=== PATIENT | male | born 1945 | race Caucasian/White ===

== ENCOUNTER 2018-08-13 12:08 | Observation (INO) ==
[2018-08-13] MEDS ORDERED: Aspirin 81 MG TAB.CHEW PO ONE (12:39)
--- NOTE | 2018-08-13 12:55 | Emergency Department Note ---
Disposition Clinical Impression: Atrial fibrillation with RVR Chest pain Qualifiers: Chest pain type: other chest pain Qualified Code(s): R07.89 - Other chest pain Disposition: Admitted As Inpatient Condition: Fair Time of Disposition: 14:50 General Adult HPI - General Chief complaint: ED Arrhythmia/Palpitations Stated complaint: A-Fib,CP Time Seen by Provider: 08/13/18 12:34 Source: patient Mode of arrival: ambulatory Limitations: no limitations Nursing Notes Reviewed: Yes Vital Signs Reviewed: Yes - History of Present Illness HPI Narrative: Patient is a 73-year-old male presenting with chest pain and dysrhythmia. Patient has medical history of atrial fibrillation, hypertension and hyperlipidemia. Patient states that 5 days ago he started to have generalized fatigue symptoms with palpitations and some shortness of breath. He states that he also had associated right chest discomfort described as a tightness and intermittent. He states there is no exertional component. He states episodes last from seconds to minutes. Just prior to arrival he was having chest pain which lasted for about 30 seconds, currently and no chest pain or distress. Patient does not have associated nausea, vomiting or abdominal pain. He has no radiating symptoms. He has no diaphoresis. Patient states that he has been taking Zaroxolyn flecainide for his atrial fibrillation is been well-controlled since 2009. He states that he feels palpitations and feels as though he has been atrophic relation since this time. He states he has been missing his flecainide morning dose for the past week or so states that he believes he is missed about 3-4 doses total. Patient does see Dr. Figueroa, cardiology. Pain Scale: 5 - Related Data Home Medications Medication Instructions Recorded Confirmed Aspirin Enteric Coated [Aspirin EC] 81 mg PO DAILY 08/13/18 08/13/18 Atenolol [Tenormin] 50 mg PO DAILY 08/13/18 08/13/18 Calcium Carb, Citrate/Vit D3 1 tab PO DAILY 08/13/18 08/13/18 [Calcium + D3 ER Tablet] Cetirizine HCl [All Day Allergy] 10 mg PO DAILY 08/13/18 08/13/18 Flecainide 100 mg PO Q12HR 08/13/18 08/13/18 Fluticasone Propionate Nasal 1 spr NS DAILY 08/13/18 08/13/18 [Flonase] Lisinopril [Zestril] 40 mg PO DAILY 08/13/18 08/13/18 Multivitamin [One Daily Essential] 1 tab PO DAILY 08/13/18 08/13/18 NIFEdipine XL (24 HR) [Procardia 30 mg PO DAILY 08/13/18 08/13/18 XL] [place]-3/Dha/Epa/Fish Oil [Fish Oil 1 cap PO DAILY 08/13/18 08/13/18 1,000 mg Softgel] Omeprazole [PriLOSEC] 20 mg PO DAILY 08/13/18 08/13/18 Rivaroxaban [Xarelto] 20 mg PO DAILY 08/13/18 08/13/18 Tamsulosin HCl [Flomax] 0.4 mg PO DAILY 08/13/18 08/13/18 metFORMIN [Glucophage] 500 mg PO DAILY 08/13/18 08/13/18 Allergies Allergy/AdvReac Type Severity Reaction Status Date / Time lovastatin AdvReac Hives Verified 08/13/18 13:14 All systems ED: reviewed and negative except as stated. Review of Systems: As Per HPI Constitutional: Denies: fever, chills ENT ED: Denies: congestion Cardiovascular: Reports: chest pain, palpitations. Denies: dyspnea on exertion , syncope Respiratory: Reports: dyspnea. Denies: cough, wheezes Gastrointestinal: Denies: abdominal pain, nausea, vomiting, diarrhea, hematemesis Genitourinary: Denies: urgency, dysuria, frequency Musculoskeletal: Denies: back pain Integumentary: Denies: rash, lesions Neurological: Denies: headache, weakness, numbness, paresthesias Endocrine: Reports: fatigue Past Medical History - Past Medical History Attestation: Yes The following information was validated with the patient. Source: patient Medical history: Reports: other Physical Exam - General Limitations: no limitations General appearance: alert, in no apparent distress - Head Head exam: atraumatic, normocephalic - Eye Eye exam: Present: normal appearance - ENT ENT exam: normal exam, mucous membranes moist - Neck Neck exam: Present: normal inspection - Chest Chest inspection: Present: normal inspection, symmetric chest wall rise. Absent : tenderness - Respiratory Respiratory exam: Present: normal lung sounds bilaterally. Absent: respiratory distress, wheezes - Cardiovascular Cardiovascular exam: Present: regular rate, irregular rhythm - Abdominal Exam Abdominal exam: Present: soft, Non-Tender. Absent: tenderness, distention, guarding, rebound, rigidity - Extremities Exam Extremities exam: Present: normal inspection, normal capillary refill. Absent: calf tenderness - Expanded Lower Extremity Exam Neurovascular/Tendon exam: Present: normal capillary refill. Absent: pulse deficit, motor deficit, sensory deficit - Neurological Exam Neurological exam: Present: alert, oriented X3 - Psychiatric Psychiatric exam: Present: normal affect, normal mood - Skin Skin exam: Present: warm, dry, intact Course Course Narrative: Will ACS rule out at this point in time. - Consultations Consultation #1: Spoke with cardiology at 1435 Dr. Griffiths, who stated that at this point in time he would start Lopressor 5 mg IV, if patient tolerates and heart rate is tolerable as well as blood pressure, start 5 mg by mouth. Vital Signs Temperature 97.7 F 08/13/18 12:18 Pulse Rate 123 08/13/18 12:18 Respiratory Rate 18 08/13/18 12:18 Blood Pressure 137/92 08/13/18 12:18 O2 Sat by Pulse Oximetry 95 08/13/18 12:18 Temperature 97.7 F 08/13/18 12:44 Pulse Rate 83 08/13/18 15:58 Respiratory Rate 14 08/13/18 15:58 Blood Pressure 127/74 08/13/18 15:58 O2 Sat by Pulse Oximetry 95 08/13/18 15:58 Oxygen Delivery Oxygen Delivery Room Air Medical Decision Making - [facility] Narrative Medical decision making narrative: Patient is a [id number]-year-old male presenting with atrial fibrillation and chest discomfort. Patient has has had a history significant for atrial fibrillation currently taking Xarelto and flecainide. Patient has no history of myocardial infarction or stent placement. Patient has been missing his left my multiple times over the past week. Patient is seen by Dr. Figueroa and cardiology. EKG shows patient to be in atrial fibrillation with ventricular rate in the low 100s. At bedside, patient's heart rate is 103. Patient currently denying chest pain. His workup reveals a normal CBC, BMP, troponin is within normal limits. Chest x-ray shows possible right basilar opacity, patient continues to be symptomatically denies any symptoms. At this point in time will contact cardiology for further recommendations. Cardiology, stated that we should start Lopressor 5 mg IV push while watching the patient. Patient tolerated to start 5 mg oral. At this point in time, we will discuss patient with hospitalist this patient should be admitted for ACS rule out. Spoke with hospitalist at 1450, and accepts patient at this point in time - Medical Records Medical records reviewed: Yes I reviewed the patient's medical records. - Lab Data Lab results reviewed: Yes I reviewed the patient's lab results. Result diagrams: 08/13/18 12:50 08/13/18 12:50 Lab Results 08/13/18 08/13/18 08/13/18 Range/Units 12:40 12:50 12:50 WBC 7.3 (4.3-11.1) K/mcL RBC 4.92 (4.19-5.50) M/mcL Hgb 14.9 (12.9-16.9) g/dL Hct 44.3 (37.5-50.1) % MCV 90.0 (83.0-100.0) fL MCH 30.3 (28.0-33.3) pg MCHC 33.6 (31.6-35.5) g/dL RDW 13.5 (11.5-14.5) % Plt Count 284 (140-400) K/mcL MPV 10.4 (9.4-12.4) fL Immature Gran % 0.4 (0-4) % Seg Neutrophils % 55.8 % Lymphocytes % 31.7 % Monocytes % 9.2 % Eosinophils % 1.8 % Basophils % 1.1 % Neutrophils # 4.1 (1.6-8.9) K/mcL Lymphocytes # 2.3 (0.6-4.6) K/mcL Monocytes # 0.7 (0.0-1.3) K/mcL Eosinophils # 0.1 (0.0-0.6) K/mcL Basophils # 0.1 (0.0-0.2) K/mcL PT 16.8 H (9.4-12.1) Seconds INR 1.5 APTT 35.1 (26.0-36.0) Seconds Sodium 138 (136-145) mEq/L Potassium 4.4 (3.5-5.1) mEq/L Chloride 107 (98-107) mEq/L Carbon Dioxide 25 (23-29) mEq/L BUN 20 (8-23) mg/dL Creatinine 1.20 (0.70-1.30) mg/dL Est GFR ( Amer) > 60 (> 60) Est GFR (Non-Af Amer) 59 L (> 60) BUN/Creatinine Ratio 17 (6-26) Glucose 122 H (70-105) mg/dL Calculated Osmolality 290 (280-300) Calcium 9.7 (8.6-10.3) mg/dL Troponin I < 0.03 (< 0.04) ng/mL - Radiology Data Radiology results reviewed: Yes I reviewed the patient's radiology results. Chest X-Ray 08/13/18 12:40 IMPRESSION: Mild right basilar opacity may represent a developing infiltrate. Follow-up to resolution is recommended. D/ / Daphne Spencer MD / Daphne Spencer MD Interpreting Provider: Daphne Spencer MD - EKG Data EKG #1 EKG attestation: Yes I reviewed and interpreted this EKG. EKG results narrative: EKG one performed at 12 1950. Of 108, patient appears to be in atrial fibrillation with RVR left axis deviation, possible ST elevation in V2 and V3 with depression in V5 V6, repeat EKG was performed Repeat EKG performed at 1249 shows ventricular rate of 112, patient appears to be in atrial fibrillation, irregular regular rhythm, left axis deviation no ST elevation is noted, no T-wave changes, slight ST depression in V 5. When compared to previous EKG there are: previous EKG unavailable Critical Care Time Critical Care Time: Yes Total Critical Care Time: 35 Attestation: Critical care performed: Time is exclusive of separately billable procedures. Time includes: direct patient care, patient reassessment, coordination of patient care, interpretation of data (laboratory data, radiology data, and respiratory data), review of patient's medical records, medical consultation and documentation of patient care. Procedures included in critical care time: Procedures excluded from critical care time: S.B.A.R. - S.B.A.R. Situation: Demographics, MOA Background: Presenting Complaint, Relevant PMH, Meds, & Allergies Assessment: Vital Signs, Course and respsone to treatment, Exam Concerns, Patient/Family Expectation, Pertinant Lab Results, Outstanding Labs Recommendation: Barrier(s) to disposition, Recommendation based on pending studies, treatments, or consults Asim Report Given to: Dr. Kamala Dialey Repor Time: 14:50 (accepted)
--- NOTE | 2018-08-13 13:02 | Emergency Department Note ---
Disposition Clinical Impression: Atrial fibrillation with RVR, Chest pain Disposition: Admitted As Inpatient Condition: Fair General Adult HPI - General Chief complaint: ED Arrhythmia/Palpitations Stated complaint: A-Fib,CP Time Seen by Provider: 08/13/18 12:34 Source: patient Mode of arrival: ambulatory Limitations: no limitations - History of Present Illness Pain Scale: 5 - Related Data Home Medications Medication Instructions Recorded Confirmed Aspirin Enteric Coated [Aspirin EC] 81 mg PO DAILY 08/13/18 08/13/18 Atenolol [Tenormin] 50 mg PO DAILY 08/13/18 08/13/18 Calcium Carb, Citrate/Vit D3 1 tab PO DAILY 08/13/18 08/13/18 [Calcium + D3 ER Tablet] Cetirizine HCl [All Day Allergy] 10 mg PO DAILY 08/13/18 08/13/18 Flecainide 100 mg PO Q12HR 08/13/18 08/13/18 Fluticasone Propionate Nasal 1 spr NS DAILY 08/13/18 08/13/18 [Flonase] Lisinopril [Zestril] 40 mg PO DAILY 08/13/18 08/13/18 Multivitamin [One Daily Essential] 1 tab PO DAILY 08/13/18 08/13/18 NIFEdipine XL (24 HR) [Procardia 30 mg PO DAILY 08/13/18 08/13/18 XL] [place]-3/Dha/Epa/Fish Oil [Fish Oil 1 cap PO DAILY 08/13/18 08/13/18 1,000 mg Softgel] Omeprazole [PriLOSEC] 20 mg PO DAILY 08/13/18 08/13/18 Rivaroxaban [Xarelto] 20 mg PO DAILY 08/13/18 08/13/18 Tamsulosin HCl [Flomax] 0.4 mg PO DAILY 08/13/18 08/13/18 metFORMIN [Glucophage] 500 mg PO DAILY 08/13/18 08/13/18 Allergies Allergy/AdvReac Type Severity Reaction Status Date / Time lovastatin AdvReac Hives Verified 08/13/18 13:14 Constitutional: Denies: fever, chills ENT ED: Denies: congestion Cardiovascular: Reports: chest pain, palpitations. Denies: dyspnea on exertion , syncope Respiratory: Reports: dyspnea. Denies: cough, wheezes Gastrointestinal: Denies: abdominal pain, nausea, vomiting, diarrhea, hematemesis Genitourinary: Denies: urgency, dysuria, frequency Musculoskeletal: Denies: back pain Integumentary: Denies: rash, lesions Neurological: Denies: headache, weakness, numbness, paresthesias Endocrine: Reports: fatigue Past Medical History - Past Medical History Medical history: Reports: asthma, atrial fibrillation, GERD, hypertension Psychiatric history: Reports: no psych history - Social History Smoking Status: Never smoker Smokeless Tobacco Status: No Alcohol use: Reports: rarely Drug use: Reports: none Physical Exam - General Limitations: no limitations General appearance: alert, in no apparent distress Course Vital Signs Temperature 97.7 F 08/13/18 12:18 Pulse Rate 123 08/13/18 12:18 Respiratory Rate 18 08/13/18 12:18 Blood Pressure 137/92 08/13/18 12:18 O2 Sat by Pulse Oximetry 95 08/13/18 12:18 Temperature 97.7 F 08/13/18 12:44 Pulse Rate 83 08/13/18 15:58 Respiratory Rate 14 08/13/18 15:58 Blood Pressure 127/74 08/13/18 15:58 O2 Sat by Pulse Oximetry 95 08/13/18 15:58 Oxygen Delivery Oxygen Delivery Room Air Medical Decision Making - Lab Data Result diagrams: 08/13/18 12:50 08/13/18 12:50 Lab Results 08/13/18 08/13/18 08/13/18 Range/Units 12:40 12:50 12:50 WBC 7.3 (4.3-11.1) K/mcL RBC 4.92 (4.19-5.50) M/mcL Hgb 14.9 (12.9-16.9) g/dL Hct 44.3 (37.5-50.1) % MCV 90.0 (83.0-100.0) fL MCH 30.3 (28.0-33.3) pg MCHC 33.6 (31.6-35.5) g/dL RDW 13.5 (11.5-14.5) % Plt Count 284 (140-400) K/mcL MPV 10.4 (9.4-12.4) fL Immature Gran % 0.4 (0-4) % Seg Neutrophils % 55.8 % Lymphocytes % 31.7 % Monocytes % 9.2 % Eosinophils % 1.8 % Basophils % 1.1 % Neutrophils # 4.1 (1.6-8.9) K/mcL Lymphocytes # 2.3 (0.6-4.6) K/mcL Monocytes # 0.7 (0.0-1.3) K/mcL Eosinophils # 0.1 (0.0-0.6) K/mcL Basophils # 0.1 (0.0-0.2) K/mcL PT 16.8 H (9.4-12.1) Seconds INR 1.5 APTT 35.1 (26.0-36.0) Seconds Sodium 138 (136-145) mEq/L Potassium 4.4 (3.5-5.1) mEq/L Chloride 107 (98-107) mEq/L Carbon Dioxide 25 (23-29) mEq/L BUN 20 (8-23) mg/dL Creatinine 1.20 (0.70-1.30) mg/dL Est GFR ( Amer) > 60 (> 60) Est GFR (Non-Af Amer) 59 L (> 60) BUN/Creatinine Ratio 17 (6-26) Glucose 122 H (70-105) mg/dL Calculated Osmolality 290 (280-300) Calcium 9.7 (8.6-10.3) mg/dL Troponin I < 0.03 (< 0.04) ng/mL Attestation Statement - Attestation Attestation: I examined this patient and my medical decision-making was reviewed with the Resident Physician. I agree with the documented findings, disposition and treatment plan as described except to the extent set forth below. Patient to the ED with a chief complaint of A. fib. Patient states he thinks it started about 5 days ago. He states he knew he was sent in because he checked his pulse and it was high. He has a history of the same. His been off like and 9 for 5 or 6 years and has not had any episodes in that time. He is also anticoagulated on Xarelto. Patient is in no distress on examination. Heart irregularly irregular running in the upper 90s to low 100s. Plan. Cardiac workup. We will discuss with cardiology. Chest X-Ray 08/13/18 12:40 IMPRESSION: Mild right basilar opacity may represent a developing infiltrate. Follow-up to resolution is recommended. D/ / Daphne Spencer MD / Daphne Spencer MD Interpreting Provider: Daphne Spencer MD
[2018-08-13 13:11] LABS: Basophils # 0.1 K/mcL (0.0-0.2); Basophils % 1.1 %; Eosinophils # 0.1 K/mcL (0.0-0.6); Eosinophils % 1.8 %; Hematocrit 44.3 % (37.5-50.1); Hemoglobin 14.9 g/dL (12.9-16.9); Immature Granulocytes % 0.4 % (0-4); Lymphocytes # 2.3 K/mcL (0.6-4.6); Lymphocytes % 31.7 %; Mean Corpuscular HGB Conc 33.6 g/dL (31.6-35.5); Mean Corpuscular Hemoglobin 30.3 pg (28.0-33.3); Mean Platelet Volume 10.4 fL (9.4-12.4); Monocytes # 0.7 K/mcL (0.0-1.3); Monocytes % 9.2 %; Neutrophils # 4.1 K/mcL (1.6-8.9); Platelet Count 284 K/mcL (140-400); Red Blood Count 4.92 M/mcL (4.19-5.50); Red Cell Distribution Width 13.5 % (11.5-14.5); Segmented Neutrophils % 55.8 %
[2018-08-13 13:17] LABS: INR 1.5; Prothrombin Time 16.8 Seconds (9.4-12.1)
[2018-08-13 13:20] LABS: Activated Partial Thrombo Time 35.1 Seconds (26.0-36.0)
[2018-08-13 13:27] LABS: BUN/Creatinine Ratio 17 (6-26); Blood Urea Nitrogen 20 mg/dL (8-23); Calcium 9.7 mg/dL (8.6-10.3); Carbon Dioxide 25 mEq/L (23-29); Chloride 107 mEq/L (98-107); Glucose 122 mg/dL (70-105); Osmolality,Calculated 290 (280-300); Potassium 4.4 mEq/L (3.5-5.1); Sodium 138 mEq/L (136-145); Troponin I < 0.03 ng/mL (< 0.04); eGFR For Non-African Americans 59 (> 60)
[2018-08-13] MEDS ORDERED: *HR* Metoprolol 5 MG/5 ML VIAL IVP ONE (14:36)
--- NOTE | 2018-08-13 15:39 | Internal Med Progress Note ---
<Sylvia Leyva - Last Filed: 08/14/18 17:47> Hospitalist Progress Note - Encounter Date of Encounter: 08/14/18 Time of Encounter: 08:32 - Subjective Interval History: Patient is a 73-year-old male with a pmh of DM2, Afib on Xarelto, and HTN who presenting with chest pressure and dysrhythmia. Today patient is feeling well. Denies chest pressure, SOB, CP. Patient had cardioversion and afterwards felt like his head was a little fuzzy. - Exam Vitals: Temp Pulse Resp BP Pulse Ox 97.7 F 123 18 137/92 95 08/13/18 12:44 08/13/18 12:44 08/13/18 12:44 08/13/18 12:44 08/13/18 12:44 Exam: Constitutional: Alert, in no acute distress Head: Normocephalic, atraumatic Heart: regular rate, irregular rhythm, no murmurs Lungs: Clear to auscultation, no wheezes, rales, or rhonchi Abdomen: Soft, nondistended, nontender, bowel sounds present and normal, no guarding or rigidity. Extremities: No edema, No clubbing, radial pulse +2/4, capillary refill <2sec. Skin: Skin warm and dry, no lesions, no rashes, no jaundice Neurologic: Cranial nerves II through XII grossly intact, strength 5/5 in all extremities Psych: Cooperative with exam, good eye contact, cognitive function intact, speech clear, thought process logical, and goal directed - Assessment and Plan (1) Atrial fibrillation with RVR Current Visit: Yes Status: Acute Assessment and Plan: Patient has a pmh of Afib on Xarelto and Flecainide 100mg BID. Possible causes of include missing doses of Flecainide, not using CPAP at night, vs. pneumonia. Troponin <0.03 x 3. Currently not having chest pain. Overnight patient has been rate controlled without PRN Lopressor given. Cardiology performed cardioversion. Patient's s/p cardioversion was 76/45, repeat was 92/57. Patient's HR remained within the low 40s. Awaiting recommendations from Cardio about holding atenolol. Plan: - continue telemetry - consulted cardiology, awaiting home med recs - diet: regular diet - dispo: rate controlled (2) HTN (hypertension) Current Visit: Yes Status: Acute Assessment and Plan: Currently stable. Continue home medications: Atenolol, Flecainide, Nifedipine, ASA (3) Prediabetes Current Visit: Yes Status: Acute Assessment and Plan: A1c= 5.7 per patient, currently on Metformin for pre-diabetes. Will hold Metformin. Pre-diabetes should not need glucose control while inpatient. DVT Prophylaxis: continue home Xarelto - Time Spent with Patient Total time spent is greater than 50% in coordination of care (as documented) at patient's floor/unit and/or counseling patient: Plan of Care Discussed with: patient Internal Medicine: Result - Labs CBC & Chem 7: 08/14/18 00:46 08/14/18 00:46 - ABG Interpretation ABG results: PT/INR, D-dimer PT 16.8 Seconds (9.4-12.1) H 08/13/18 12:40 Consult Discharge Plan - Plan Referrals: Trenton Schneider MD [Primary Care Provider] - <Yeimy Reyes - Last Filed: 08/14/18 18:30> Hospitalist Progress Note - Encounter Date of Encounter: 08/14/18 - Exam Vitals: Temp Pulse Resp BP Pulse Ox 96.7 F L 58 15 112/68 93 08/14/18 13:30 08/14/18 18:16 08/14/18 15:12 08/14/18 18:16 08/14/18 15:12 - Assessment and Plan (1) Atrial fibrillation with RVR Current Visit: Yes Status: Acute (2) HTN (hypertension) Current Visit: Yes Status: Acute (3) Prediabetes Current Visit: Yes Status: Acute - Time Spent with Patient Total time spent is greater than 50% in coordination of care (as documented) at patient's floor/unit and/or counseling patient: Internal Medicine: Result - Labs CBC & Chem 7: 08/14/18 00:46 08/14/18 00:46 Labs: Short CBC 08/14/18 Range/Units 00:46 WBC 8.2 (4.3-11.1) K/mcL Hgb 15.0 (12.9-16.9) g/dL Hct 44.3 (37.5-50.1) % Plt Count 272 (140-400) K/mcL Neutrophils # 3.7 (1.6-8.9) K/mcL BMP 08/14/18 00:46 Sodium 139 Potassium 3.8 Chloride 107 Carbon Dioxide 23 BUN 18 Creatinine 1.01 Glucose 136 H Calcium 9.1 Cardiac Enzymes 08/13/18 08/14/18 08/14/18 Range/Units 17:59 00:46 05:38 Troponin I < 0.03 < 0.03 < 0.03 (< 0.04) ng/mL - ABG Interpretation ABG results: PT/INR, D-dimer PT 16.8 Seconds (9.4-12.1) H 08/13/18 12:40 - Impressions Impressions Transesophageal w/Cardioversion 08/14/18 10:11 Impressions: Successful DCCV of atrial fibrillation to normal sinus rhythm. No evidence for intracardiac thrombus. LA appears severely enlarged. Patient desaturated to into 80% range during the procedure. Medication Given: Time Medication Dose Units Route 11:55 Versed 1 mg IV 11:55 Fentanyl 25 mcg IV 12:00 Versed 2 mg IV 12:00 Fentanyl 25 mcg IV 12:05 Versed 2 mg IV 12:18 Versed 1 mg IV 12:18 Fentanyl 25 mcg IV Contrast Type Amount Agitated saline 10 Findings: ECG Findings * Atrial fib without ectopy Left Ventricle * Normal size and function. Right Ventricle * The right ventricle was normal in size and systolic function. Left Atrium * Severely dilated. * No thrombus present. * The LA appendage flow velocity is borderline normal. Right Atrium * RA is Mildly dilated. * No thrombus present. Interatrial Septum * No evidence of inter-atrial shunting noted with saline contrast. Aortic Valve * No aortic regurgitation. * Normal structure and function. Mitral Valve * Normal structure. * Mild mitral regurgitation. Tricuspid Valve * Normal structure. * mild tricuspid regurgitation. Pulmonic Valve * Not well visualized. * trivial pulmonic regurgitation. Aorta * The aortic root is not dilated. * Grade II plaquing of the descending thoracic aorta. Pulmonary Artery * Normal pulmonary artery. Pulmonary Veins * Systolic blunting flow patterns. - Attending Attestation I examined this patient and my medical decision-making was reviewed with the Resident Physician DR. Leyva. I agree with the documented findings, disposition and treatment plan as described except to the extent set forth below. Mr. Royal is 73 y/o M with known Afib, HTN, HLD and Sleep apnea pt admitted here for A fib with RVR. He went for Cardioversion today. He is in NSR now. However he is little nita cardic too. So held his Atenolol now. Cont Flecanide only. Will talk to card in AM. Explained this to pt and his family at bed side. <Sylvia Leyva - Last Filed: 08/14/18 17:47> (2) HTN (hypertension) Qualifiers: Hypertension type: essential hypertension Qualified Code(s): I10 - Essential (primary) hypertension <Yeimy Reyes - Last Filed: 08/14/18 18:30> (2) HTN (hypertension) Qualifiers: Hypertension type: essential hypertension Qualified Code(s): I10 - Essential (primary) hypertension
--- NOTE | 2018-08-13 16:16 | Internal Med History&Physical ---
<Sylvia Leyva - Last Filed: 08/13/18 17:01> Date of Encounter: 08/13/18 Time of Encounter: 15:58 Internal Medicine - H&P: HPI Chief complaint: chest pain Admitted From: Home History of present illness: Mr. Royal is 73-year-old male with a pmh of pre-diabetes, Afib on Xarelto, LUZMARIA on CPAP, and HTN who presenting with chest tightness and dysrhythmia. He felt like he was in afib on Monday and then it continued throughout the weekend. He decided to come in due to not converting over the weekend. He has had intermittent chest tightness that resolved with ibuprofen. He has had some rhinorrhea but believes this to be due to allergies. Denies fevers, chills, coughing, CP, , N/V. He missed his Flecainide in the AM a couple of days last week. but for the last 5 days has taken every dose of his Flecainide. He has used his CPAP every day for the last 5 days but does often miss.The last time he was in hospitalized for afib was 5-6 years ago for change in flecainide. He has not been in afib. Dr. Mike Figueroa is his benefits assistant. Upon arrival to the ED patient was found to be in Afib RVR with a HR 123 and a normal blood pressure. showed Cardiology was called and instructed to give Lopressor 5mg IVP once then start Lopressor 5mg PO. ASA was also given. Labs were wnl including initial Troponin. Patient was admitted for Afib RVR and ACS r/o. Past Med Surg Social Fam HX - Past Medical History Medical history: atrial fibrillation, GERD, hypertension Additional medical history: sleep apnea Psychiatric history: no psych history - Past Surgical History Surgical History: cholecystectomy, orthopedic, other Additional surgical history: rotator cuff surgery - Social History Smoking Status: Former smoker (quit 1979) Smokeless Tobacco Status: No Alcohol use: occasionally Drug use: none Occupational status: retired Current living situation: Home Activity Level: Independent ambulation Recent Out of Country Travel Within the Last 8 Weeks: No Exposure or Possible Exposure to Illness During Travel: No - Family History Mother Hx Family Cardiac Disorders: Yes (pacemaker) Father Hx Family Cancer: Yes (lung cancer) Internal Medicine - H&P: Meds Aspirin Enteric Coated [Aspirin EC] 81 mg PO DAILY 08/13/18 [History] Atenolol [Tenormin] 50 mg PO DAILY 08/13/18 [History] Calcium Carb, Citrate/Vit D3 [Calcium + D3 ER Tablet] 1 tab PO DAILY 08/13/18 [ History] Cetirizine HCl [All Day Allergy] 10 mg PO DAILY 08/13/18 [History] Flecainide 100 mg PO Q12HR 08/13/18 [History] Fluticasone Propionate Nasal [Flonase] 1 spr NS DAILY 08/13/18 [History] Lisinopril [Zestril] 40 mg PO DAILY 08/13/18 [History] Multivitamin [One Daily Essential] 1 tab PO DAILY 08/13/18 [History] NIFEdipine XL (24 HR) [Procardia XL] 30 mg PO DAILY 08/13/18 [History] [place]-3/Dha/Epa/Fish Oil [Fish Oil 1,000 mg Softgel] 1 cap PO DAILY 08/13/18 [ History] Omeprazole [PriLOSEC] 20 mg PO DAILY 08/13/18 [History] Rivaroxaban [Xarelto] 20 mg PO DAILY 08/13/18 [History] Tamsulosin HCl [Flomax] 0.4 mg PO DAILY 08/13/18 [History] metFORMIN [Glucophage] 500 mg PO DAILY 08/13/18 [History] 3 Allergy/AdvReac Type Severity Reaction Status Date / Time lovastatin AdvReac Hives Verified 08/13/18 13:14 All Systems PM: A 10-system review of systems was performed and is negative for pertinent findings except as documented above in the HPI. - Constitutional Constitutional: no fever(s) - EENT Eyes: no pain Nose, mouth and throat: nasal discharge, no hoarseness - Cardiovascular Cardiovascular ROS IM: palpitations, no dyspnea - Respiratory Respiratory: no dyspnea - Gastrointestinal Gastrointestinal: no abdominal pain, no nausea, no vomiting - Musculoskeletal Musculoskeletal ROS IM: no back pain - Integumentary Integumentary IM: no rash - Neurological Neurological ROS: no abnormal hearing - Constitutional Vitals: Temp Pulse Resp BP Pulse Ox 97.7 F 123 18 137/92 95 08/13/18 12:44 08/13/18 12:44 08/13/18 12:44 08/13/18 12:44 08/13/18 12:44 Exam: Constitutional: Alert, in no acute distress Head: Normocephalic, atraumatic Heart: regular rate, irregular rhythm, no murmurs Lungs: Clear to auscultation, no wheezes, rales, or rhonchi Abdomen: Soft, nondistended, nontender, bowel sounds present and normal, no guarding or rigidity. Extremities: No edema, No clubbing, radial pulse +2/4, capillary refill <2sec. Skin: Skin warm and dry, no lesions, no rashes, no jaundice Neurologic: Cranial nerves II through XII grossly intact, strength 5/5 in all extremities Psych: Cooperative with exam, good eye contact, cognitive function intact, speech clear, thought process logical, and goal directed Internal Med - H&P Results - Labs CBC & Chem 7: 08/13/18 12:50 08/13/18 12:50 - Assessment and plan (1) Atrial fibrillation with RVR Current Visit: Yes Status: Acute Assessment and plan: Patient has a pmh of Afib on Xarelto and Flecainide 100mg BID. Possible causes of include missing doses of Flecainide, not using CPAP at night, vs. pneumonia. Initial Troponin= <0.03. Currently not having chest pain. Plan: - Lopressor 5mg IVP Q6H prn if tachycardic > 110, don't give if systolic BP < 100 - trending troponins - continue telemetry - consult cardiology in the AM for rate control - dispo: rate controlled (2) HTN (hypertension) Current Visit: Yes Status: Acute Assessment and plan: Currently stable. Continue home medications: Atenolol, Flecainide, Nifedipine, ASA Qualifiers: Hypertension type: essential hypertension Qualified Code(s): I10 - Essential (primary) hypertension (3) Prediabetes Current Visit: Yes Status: Acute Assessment and plan: Patient's last A1c= 5.7 per patient, currently on Metformin for pre-diabetes. Will hold Metformin. Pre-diabetes should not need glucose control while inpatient. will check A1c. (4) Pneumonia Current Visit: Yes Status: Acute Assessment and plan: Has had some rhinorrhea, increase fatigue but denies fever, coughing. CXR shows right middle lobe opacity. WBC wnl. Afebrile. Due to possible cause for onset of Afib will start patient on Augmentin for 7 days. Plan: - Augmentin 875mg BID - continue home allergy medications Qualifiers: Pneumonia type: due to unspecified organism Laterality: right Lung location: middle lobe of lung Qualified Code(s): J18.1 - Lobar pneumonia, unspecified organism - Time Spent With Patient Total time spent is greater than 50% in coordination of care (as documented) at patient's floor/unit and/or counseling patient: <Nirav Castro - Last Filed: 08/13/18 17:59> Date of Encounter: 08/13/18 Internal Medicine - H&P: HPI History of present illness: Mr. Royal is a 73 year old male All Systems PM: A 10-system review of systems was performed and is negative for pertinent findings except as documented above in the HPI. - Constitutional Vitals: Temp Pulse Resp BP Pulse Ox 97.7 F 83 15 124/78 94 08/13/18 17:23 08/13/18 17:23 08/13/18 17:23 08/13/18 17:23 08/13/18 17:23 Internal Med - H&P Results - Labs CBC & Chem 7: 08/13/18 12:50 08/13/18 12:50 - Assessment and plan (1) Atrial fibrillation with RVR Current Visit: Yes Status: Acute (2) HTN (hypertension) Current Visit: Yes Status: Acute Qualifiers: Hypertension type: essential hypertension Qualified Code(s): I10 - Essential (primary) hypertension (3) Prediabetes Current Visit: Yes Status: Acute (4) Pneumonia Current Visit: Yes Status: Acute Qualifiers: Pneumonia type: due to unspecified organism Laterality: right Lung location: middle lobe of lung Qualified Code(s): J18.1 - Lobar pneumonia, unspecified organism - Time Spent With Patient Total time spent is greater than 50% in coordination of care (as documented) at patient's floor/unit and/or counseling patient: - Attending Attestation I examined this patient and my medical decision-making was reviewed with the Resident Physician. I agree with the documented findings, disposition and treatment plan as described except to the extent set forth below.
[2018-08-13] MEDS ORDERED: Naloxone 0.4 MG/ML INJ IVP PRN (16:49)
[2018-08-13] MEDS ORDERED: *HR* Metoprolol 5 MG/5 ML VIAL IVP PRN (17:14)
[2018-08-13] MEDS ORDERED: *HR* Rivaroxaban 10 MG TABLET PO SCH (18:00)
[2018-08-13] MEDS: Aspirin Enteric Coated 81 MG Tablet PO SCH (18:29)
[2018-08-13] MEDS: Fluticasone Propionate Nasal 50 MCG/SPRAY BOTTLE NS SCH (18:30)
[2018-08-13] MEDS: Lisinopril 20 MG TABLET PO SCH (18:33)
[2018-08-13] MEDS: Loratadine 10 MG TABLET PO SCH (18:33)
[2018-08-14 02:45] LABS: Basophils # 0.1 K/mcL (0.0-0.2); Basophils % 0.9 %; Eosinophils # 0.3 K/mcL (0.0-0.6); Eosinophils % 3.2 %; Hematocrit 44.3 % (37.5-50.1); Immature Granulocytes % 0.4 % (0-4); Lymphocytes # 3.4 K/mcL (0.6-4.6); Lymphocytes % 41.1 %; Mean Corpuscular HGB Conc 33.9 g/dL (31.6-35.5); Mean Corpuscular Volume 91.5 fL (83.0-100.0); Monocytes # 0.8 K/mcL (0.0-1.3); Monocytes % 9.1 %; Neutrophils # 3.7 K/mcL (1.6-8.9); Platelet Count 272 K/mcL (140-400); Red Blood Count 4.84 M/mcL (4.19-5.50); Red Cell Distribution Width 13.3 % (11.5-14.5); Segmented Neutrophils % 45.3 %
[2018-08-14 03:05] LABS: BUN/Creatinine Ratio 18 (6-26); Blood Urea Nitrogen 18 mg/dL (8-23); Calcium 9.1 mg/dL (8.6-10.3); Carbon Dioxide 23 mEq/L (23-29); Chloride 107 mEq/L (98-107); Glucose 136 mg/dL (70-105); Magnesium 1.8 mg/dL (1.6-2.6); Osmolality,Calculated 292 (280-300); Potassium 3.8 mEq/L (3.5-5.1); Sodium 139 mEq/L (136-145); eGFR For Non-African Americans > 60 (> 60)
[2018-08-14] MEDS ORDERED: Nitroglycerin 0.4 MG TAB.SUBL SL PRN (03:12)
[2018-08-14 07:10] LABS: Estimated Average Glucose 117 mg/dl; Hemoglobin A1C 5.7 %
[2018-08-14] MEDS: NIFEdipine XL (24 HR) 30 MG TAB.ER.24 PO SCH (08:26)
[2018-08-14] MEDS ORDERED: Magnesium Oxide 400 MG TABLET PO ONE (09:00)
--- NOTE | 2018-08-14 09:25 | Electrocardiograph Report ---
[facility] Test Date: 2018-08-13 Pat Name: Mike Royal Department: 104 Room: 3A47 Gender: M Clinical Data Assistant: : 1945 Requested By: Kay Bullard Order Number: [id number] Reading MD: Lexx Jacobo Measurements Intervals [place] Rate: 108 P: SD: 0 QRS: -39 QRSD: 102 T: 0 QT: 254 QTc: 317 Interpretive Statements ATRIAL FIBRILLATION MARKED LEFT AXIS DEVIATION NONSPECIFIC ST & T-WAVE ABNORMALITY Electronically Signed On 08-14-2018 9:23:29 EDT by Lexx Jacobo
--- NOTE | 2018-08-14 09:25 | Electrocardiograph Report ---
[facility] Test Date: 2018-08-13 Pat Name: Mike Royal Department: EXAM10 Room: 3A47 Gender: M Marketing Support Manager: : 1945 Requested By: Kay Bullard Order Number: [id number] Reading MD: Lexx Jacobo Measurements Intervals [place] Rate: 112 P: NV: QRS: -36 QRSD: 95 T: -40 QT: 307 QTc: 419 Interpretive Statements Atrial flutter Left axis deviation Borderline repolarization abnormality Electronically Signed On 08-14-2018 9:24:05 EDT by Lexx Jacobo
--- NOTE | 2018-08-14 09:26 | Electrocardiograph Report ---
[place] [address] Test Date: 2018-08-14 Pat Name: Mike Royal Department: 115 Room: 3A47 Gender: M Dietary Director: : 1945 Requested By: Charisse Concepcion Order Number: [id number] Reading MD: Lexx Jacobo Measurements Intervals [place] Rate: 78 P: [place]: 0 QRS: -39 QRSD: 88 T: -16 QT: 390 QTc: 423 Interpretive Statements Atrial flutter/fibrillation MARKED LEFT AXIS DEVIATION NONSPECIFIC ST & T-WAVE ABNORMALITY Electronically Signed On 08-14-2018 9:24:34 EDT by Lexx Jacobo
--- NOTE | 2018-08-14 10:14 | Cardiology Consult Note ---
Date of Encounter: 08/14/18 Time of Encounter: 10:12 Assessment and Plan (1) PAF (paroxysmal atrial fibrillation) Current Visit: Yes Status: Acute Known hx of PAF on Flecainide 100mg BID and anticoagulated on Xarelto 20mg daily. Repost missing "a couple" of his AM flecainide doses last week. No missed doses since . On he could tell he went into A-Fib--symptoms of chest discomfort, palpitations and weakness. A-Fib RVR on presentation HR 120s. Now rate controlled, appears A-Flutter on telemetry. Reports feeling better, but still "off". EKG A-Fib RVR rate 112 QRS 95ms, QT/QTc 307/419ms. K 3.8. Mag 1.8. Discussed and reviewed with Dr. Jacobo. Recommend DCCV in attempt to restore SR. Pt admits to missing Xarelto doses in the past month, MISSY warranted. MISSY/DCCV today. R/B/A discussed. Pt agrees. (2) Chest pain Current Visit: Yes Status: Acute Presented with chest discomfort in the setting of A-Fib RVR. CP has resolved with rate control. No ischemic EKG changes noted. Troponins negative x 4. Stress test 05/2015 perfusion imaging was negative for ischemia or infarct. Last TTE was 2010--EF preserved. Recheck TTE. Qualifiers: Chest pain type: other chest pain Qualified Code(s): R07.89 - Other chest pain; R07.8 - Other chest pain Discussion w patient/family: The assessment and plan as outlined above was discussed with the patient and/or family members who expressed understanding and agreement. All questions were answered. Thank you for involving us in the care of your patient. Please call with any questions. I will discuss all the above with Dr. Jacobo and make changes as necessary. History of Present Illness Consult date: 08/14/18 Requesting physician: Sylvia Leyva Consult reason: A-Fib RVR Chief complaint: chest discomfort, dyspnea, palpitations History of present illness: Mr. Royal is a 73 year old male with PMH of pre-diabetes, Afib on Flecainide and Xarelto, LUZMARIA on CPAP, and HTN who presenting with chest tightness and palpitations. He could tell he was in A-Fib on and it continued throughout the weekend. He missed his Flecainide in the AM a couple of days last week. but for the last 5 days has taken every dose of his Flecainide. He has used his CPAP every day for the last 5 days but is often noncompliant with CPAP. Upon arrival to the ED patient was found to be in Afib RVR with a HR 123 and a normal blood pressure. He was given Lopressor 5mg IVP once. Pt is now rate controlled, still in A-Fib. Reports symptoms have improved with rate control, but still feels "off". Negative stress test in 2014. TTE in 2010 EF was preserved with mildly dilated LA and mild-moderate TR. Past Med Surg Social Fam HX - Past Medical History Medical history: atrial fibrillation, GERD, hypertension Additional medical history: sleep apnea Psychiatric history: no psych history - Past Surgical History Surgical History: cholecystectomy, orthopedic, other Additional surgical history: rotator cuff surgery - Social History Smoking Status: Former smoker Smokeless Tobacco Status: No Alcohol use: occasionally Drug use: none - Family History Mother Living Status: Hx Family Cardiac Disorders: Yes (Pacer, bradycardia) Father Living Status: Hx Family Cancer: Yes (Lung) Medications and Allergies Aspirin Enteric Coated [Aspirin EC] 81 mg PO QPM 08/13/18 [History] Atenolol [Tenormin] 50 mg PO QPM 08/13/18 [History] Calcium Carb, Citrate/Vit D3 [Calcium + D3 ER Tablet] 1 tab PO QPM 08/13/18 [ History] Cetirizine HCl [All Day Allergy] 10 mg PO QPM 08/13/18 [History] Flecainide 100 mg PO Q12HR 08/13/18 [History] Fluticasone Propionate Nasal [Flonase] 1 spr NS QPM 08/13/18 [History] Lisinopril [Zestril] 40 mg PO QPM 08/13/18 [History] Multivitamin [One Daily Essential] 1 tab PO QPM 08/13/18 [History] NIFEdipine XL (24 HR) [Procardia XL] 30 mg PO DAILY 08/13/18 [History] [place]-3/Dha/Epa/Fish Oil [Fish Oil 1,000 mg Softgel] 1 cap PO QPM 08/13/18 [ History] Omeprazole [PriLOSEC] 20 mg PO QPM 08/13/18 [History] Rivaroxaban [Xarelto] 20 mg PO QPM 08/13/18 [History] Tamsulosin HCl [Flomax] 0.4 mg PO QPM 08/13/18 [History] metFORMIN [Glucophage] 500 mg PO QPM 08/13/18 [History] 3 Allergy/AdvReac Type Severity Reaction Status Date / Time lovastatin AdvReac Hives Verified 08/13/18 13:14 All Systems Review: The remainder of the systems were reviewed and are negative - Constitutional Constitutional: fatigue, weakness - Cardiovascular Cardiovascular: as per HPI, chest pain at rest, chest pain with exertion, dyspnea on exertion, palpitations - Respiratory Respiratory: dyspnea Physical Examination Vital Signs, Last 4 Hours Temp Pulse Resp BP Pulse Ox 08/14/18 09:59 97.5 F L 89 14 101/69 95 08/14/18 06:48 97.9 F 76 14 119/71 96 Vital Signs Temp Pulse Resp BP Pulse Ox 08/14/18 09:59 97.5 F L 89 14 101/69 95 08/14/18 06:48 97.9 F 76 14 119/71 96 08/14/18 05:05 98.4 F 66 15 114/56 95 08/14/18 00:35 98.3 F 78 15 121/53 95 08/13/18 20:02 97.4 F L 83 15 124/69 94 08/13/18 17:23 97.7 F 83 15 124/78 94 08/13/18 15:58 83 14 127/74 95 08/13/18 12:44 97.7 F 123 18 137/92 95 08/13/18 12:18 97.7 F 123 18 137/92 95 Intake and Output 08/13/18 08/14/18 08/14/18 23:59 07:59 15:59 Intake Total 120 / 120 0 / 0 0 / 0 Output Total 100 / 100 550 / 550 100 / 100 Balance 20 / -550 / -550 -100 / -100 Intake: Oral 120 / 120 0 / 0 0 / 0 Output: Urine 100 / 100 550 / 550 100 / 100 Other: Meal Dinner NPO for breakfast Percent of Meal Consumed 50% # Voids 2 General: Conversant, No Apparent Distress HEENT: Atraumatic, Normocephaly, Mucus Membranes Moist Neck: No JVD, Normal carotid pulses Cardiac: Other (irregularly irregular) Lungs: Normal Breath Sounds, No Wheeze, Rales, Rhonchi Neuro: Alert and responsive, No focal deficits noted Abdomen: Soft, Non-Tender Skin: No rashes noted on visualized skin Musculoskeletal: No Chest Wall Tenderness Extremities: No Clubbing, No Cyanosis, No Edema, Normal Pulses Results 08/14/18 00:46 08/14/18 00:46 Lab Results 08/13/18 08/14/18 08/14/18 17:59 00:46 00:46 WBC 8.2 Hgb 15.0 Hct 44.3 Plt Count 272 Sodium 139 Potassium 3.8 Chloride 107 Carbon Dioxide 23 BUN 18 Creatinine 1.01 Glucose 136 H Calcium 9.1 Magnesium 1.8 Troponin I < 0.03 08/14/18 08/14/18 00:46 05:38 WBC Hgb Hct Plt Count Sodium Potassium Chloride Carbon Dioxide BUN Creatinine Glucose Calcium Magnesium Troponin I < 0.03 < 0.03 Short CBC 08/14/18 08/13/18 Range/Units 00:46 12:50 WBC 8.2 7.3 (4.3-11.1) K/mcL Hgb 15.0 14.9 (12.9-16.9) g/dL Hct 44.3 44.3 (37.5-50.1) % Plt Count 272 284 (140-400) K/mcL Neutrophils # 3.7 4.1 (1.6-8.9) K/mcL BMP 08/14/18 08/13/18 Range/Units 00:46 12:50 Sodium 139 138 (136-145) mEq/L Potassium 3.8 4.4 (3.5-5.1) mEq/L Chloride 107 107 (98-107) mEq/L Carbon Dioxide 23 25 (23-29) mEq/L BUN 18 20 (8-23) mg/dL Creatinine 1.01 1.20 (0.70-1.30) mg/dL Glucose 136 H 122 H (70-105) mg/dL Calcium 9.1 9.7 (8.6-10.3) mg/dL Cardiac Enzymes 08/14/18 08/14/18 08/13/18 Range/Units 05:38 00:46 17:59 Troponin I < 0.03 < 0.03 < 0.03 (< 0.04) ng/mL 08/13/18 Range/Units 12:50 Troponin I < 0.03 (< 0.04) ng/mL Impressions Chest X-Ray 08/13/18 12:40 IMPRESSION: Mild right basilar opacity may represent a developing infiltrate. Follow-up to resolution is recommended. D/ / Daphne Spencer MD / Daphne Spencer MD Interpreting Provider: Daphne Spencer MD Active Medications Amoxicillin/Clavulanate Potassium (Augmentin) 875 mg PO BIDWM [facility] Stop: 02/12/19 17:01 Last Admin: 08/14/18 08:26 Dose: 875 mg Aspirin (Aspirin Ec) 81 mg PO QPM [facility] Stop: 02/12/19 18:31 Last Admin: 08/13/18 18:29 Dose: Not Given Atenolol (Tenormin) 50 mg PO QPM [facility] Stop: 02/12/19 18:31 Last Admin: 08/13/18 18:33 Dose: 50 mg Calcium Carbonate (Tums) 1,000 mg PO Q4HR PRN; Protocol PRN Reason: Heartburn Stop: 02/13/19 01:04 Last Admin: 08/14/18 01:17 Dose: 1,000 mg Flecainide Acetate (Flecainide) 100 mg PO Q12HR [facility] Stop: 02/12/19 18:01 Last Admin: 08/14/18 06:07 Dose: 100 mg Fluticasone Propionate (Flonase) 50 mcg NS QPM [facility] PRN Reason: Protocol Stop: 02/12/19 18:31 Last Admin: 08/13/18 18:30 Dose: Not Given Lisinopril (Zestril) 40 mg PO QPM [facility] Stop: 02/12/19 18:31 Last Admin: 08/13/18 18:33 Dose: 40 mg Loratadine (Claritin) 10 mg PO QPM [facility] Stop: 02/12/19 18:31 Last Admin: 08/13/18 18:33 Dose: 10 mg Metoprolol Tartrate (Lopressor) 5 mg IVP Q6HR PRN PRN Reason: tachycardia Stop: 02/12/19 17:15 Naloxone HCl (Narcan) 0.4 mg IVP Q2MIN PRN PRN Reason: SEE COMMENTS Stop: 02/12/19 16:50 Nifedipine (Procardia Xl) 30 mg PO DAILY [facility] PRN Reason: Protocol Stop: 02/13/19 09:01 Last Admin: 08/14/18 08:26 Dose: 30 mg Nitroglycerin (Nitroglycerin) 0.4 mg SL Q5MIN PRN PRN Reason: Chest Pain Stop: 02/13/19 03:13 Omeprazole (Prilosec) 20 mg PO QPM [facility] PRN Reason: Protocol Stop: 02/12/19 18:31 Last Admin: 08/13/18 18:33 Dose: 20 mg Rivaroxaban (Xarelto) 20 mg PO QPM [facility] Stop: 02/12/19 18:01 Tamsulosin HCl (Flomax) 0.4 mg PO QPM [facility] PRN Reason: Protocol Stop: 02/12/19 18:46 Last Admin: 08/13/18 18:36 Dose: 0.4 mg - Imaging and Cardiology Stress Test: report reviewed Echo: report reviewed - EKG Interpretation EKG results cardiology: personally reviewed (A-Fib/Flutter RVR rate 112.), other (12 hr tele AVG HR 86, A-Flutter) Consult Discharge Plan - Plan Referrals: Trenton Schneider MD [Primary Care Provider] -
[2018-08-14] MEDS ORDERED: Lidocaine Viscous Oral Soln 15 ML SOLUTION MM PRN (10:57)
[2018-08-14] MEDS ORDERED: Tetracaine/Benzocaine/Butamben 200MG/SPRAY (100SPY/BOT) MM ONE (10:58)
[2018-08-14] MEDS ORDERED: 0.9 % Sodium Chloride 500 ML IVC ONE ×2 (10:58→13:52)
[2018-08-14] MEDS: *HR* Midazolam HCl 5 MG/5 ML VIAL IVP PRN ×4 (11:55→12:18)
[2018-08-14] MEDS: *HR* FentaNYL (PF) 100 MCG/2 ML VIAL IVP PRN ×3 (11:55→12:18)
--- NOTE | 2018-08-14 12:39 | Event Note ---
Date of Encounter: 08/14/18 Time of Encounter: 12:37 - Cardiology Event Note Sucessful MISSY/DCCV to SR. MISSY with preserved EF, mild TR. Continue Flecainide 100mg BID, Procardia 30mg daily and Atenolol 50mg daily. Continue Xarelto uninterrupted for minimum of next 30 days. Verbalizes understanding. Cardiology signing off. Reconsult PRN. Okay to d/c home later today from cardiac standpoint. Will coordinate outpt follow-up with Dr. Mike Figueroa in 2-3 weeks.
--- NOTE | 2018-08-14 14:04 | Discharge Summary ---
- NOTES TO OUTPATIENT PROVIDER Notes to Outpatient Provider: f/u with cardiology in 2-3 weeks. No change in outpatient rate control meds. Orders not resulted at time of discharge: Pending orders 08/14/18 10:29 EV echocardiogram Routine 08/15/18 04:00 BMP [Basic Metabolic Panel] AM 0400 Date of Encounter: 08/14/18 Time of Encounter: 08:00 - Discharge Diagnosis (1) Atrial fibrillation with RVR Priority: Primary Status: Acute (2) HTN (hypertension) Priority: Secondary Status: Acute Qualifiers: Hypertension type: essential hypertension Qualified Code(s): I10 - Essential (primary) hypertension (3) Prediabetes Priority: Secondary Status: Acute Hospital course: Mr. Royal is a 73 year old male - Time Spent with Patient Total time spent providing and/or coordinating discharge services: - Discharge Medications Home Medications: Aspirin Enteric Coated [Aspirin EC] 81 mg PO QPM 08/13/18 [History] Atenolol [Tenormin] 50 mg PO QPM 08/13/18 [History] Calcium Carb, Citrate/Vit D3 [Calcium + D3 ER Tablet] 1 tab PO QPM 08/13/18 [ History] Cetirizine HCl [All Day Allergy] 10 mg PO QPM 08/13/18 [History] Flecainide 100 mg PO Q12HR 08/13/18 [History] Fluticasone Propionate Nasal [Flonase] 1 spr NS QPM 08/13/18 [History] Lisinopril [Zestril] 40 mg PO QPM 08/13/18 [History] Multivitamin [One Daily Essential] 1 tab PO QPM 08/13/18 [History] NIFEdipine XL (24 HR) [Procardia XL] 30 mg PO DAILY 08/13/18 [History] [place]-3/Dha/Epa/Fish Oil [Fish Oil 1,000 mg Softgel] 1 cap PO QPM 08/13/18 [ History] Omeprazole [PriLOSEC] 20 mg PO QPM 08/13/18 [History] Rivaroxaban [Xarelto] 20 mg PO QPM 08/13/18 [History] Tamsulosin HCl [Flomax] 0.4 mg PO QPM 08/13/18 [History] metFORMIN [Glucophage] 500 mg PO QPM 08/13/18 [History] Allergies/Adverse Reactions: 3 Allergy/AdvReac Type Severity Reaction Status Date / Time lovastatin AdvReac Hives Verified 08/13/18 13:14 Date of admission: 08/13/18 15:03 Primary care physician: Trenton Schneider MD Consults: 08/13/18 17:19 Consult to Cardiology [CONS] Routine Comment: Consulting Provider: Cardiology Kendy Reason for Consult: afib RVR Time Notified: 17:19 Call Completed: No Discharging clinician: Yeimy Reyes Anticipated date of discharge: 08/14/18 - Constitutional Vitals: Temp Pulse Resp BP Pulse Ox 97.6 F 75 12 101/71 94 08/14/18 11:22 08/14/18 11:22 08/14/18 11:22 08/14/18 11:22 08/14/18 11:22 - Patient Status Condition: Fair - Discharge Instructions Follow Up With: Trenton Schneider MD [Primary Care Provider] -
[2018-08-14] MEDS ORDERED: 0.9 % Sodium Chloride 1,000 ML IVC SCH (16:45)
--- NOTE | 2018-08-14 17:16 | Electrocardiograph Report ---
[place] [id number] Test Date: 2018-08-14 Pat Name: Mike Royal Department: 106 Room: 3A Gender: M Tabulating Clerk: : 1945 Requested By: Astrid Larson Order Number: [id number] Reading MD: Astrid Larson Measurements Intervals [place] Rate: 60 P: 28 MA: 194 QRS: -38 QRSD: 91 T: -26 QT: 443 QTc: 443 Interpretive Statements SINUS RHYTHM LEFT AXIS DEVIATION NONSPECIFIC ST & T-WAVE ABNORMALITY Electronically Signed On 08-14-2018 17:15:11 EDT by Astrid Larson
[2018-08-14] MEDS ORDERED: *HR* Rivaroxaban 10 MG TABLET PO SCH (18:00)
[2018-08-14] MEDS: Fluticasone Propionate Nasal 50 MCG/SPRAY BOTTLE NS SCH (20:12)
[2018-08-14] MEDS: Loratadine 10 MG TABLET PO SCH (20:13)
[2018-08-14] MEDS: Aspirin Enteric Coated 81 MG Tablet PO SCH (20:13)
[2018-08-14] MEDS: Lisinopril 20 MG TABLET PO SCH (20:14)
[2018-08-15 06:54] VITALS: BP 136/80
[2018-08-15 07:25] LABS: BUN/Creatinine Ratio 18 (6-26); Blood Urea Nitrogen 20 mg/dL (8-23); Calcium 8.5 mg/dL (8.6-10.3); Carbon Dioxide 25 mEq/L (23-29); Chloride 108 mEq/L (98-107); Glucose 141 mg/dL (70-105); Osmolality,Calculated 293 (280-300); Sodium 139 mEq/L (136-145); eGFR For Non-African Americans > 60 (> 60)
[2018-08-15] MEDS: NIFEdipine XL (24 HR) 30 MG TAB.ER.24 PO SCH (08:00)
--- NOTE | 2018-08-15 09:15 | Discharge Summary ---
- NOTES TO OUTPATIENT PROVIDER Notes to Outpatient Provider: f/u with Card Dr. figueroa in 2 weeks. Please continue taking both Flecainide and atenolol. However if feel dizzy, lightheadedness and your HR stays below 50 please stop taking Atenolol and call your Sales Representative [employer]. Also if your BP stays in 100's, you can stop taking Procardia. Date of Encounter: 08/15/18 Time of Encounter: 09:13 - Discharge Diagnosis (1) Atrial fibrillation with RVR Priority: Primary Status: Acute (2) HTN (hypertension) Priority: Secondary Status: Acute Qualifiers: Hypertension type: essential hypertension Qualified Code(s): I10 - Essential (primary) hypertension (3) Prediabetes Priority: Secondary Status: Acute Hospital course: Mr. Royal is a 73 year old male with PMH of Diabetes, Afib on Flecainide and Xarelto, LUZMARIA on CPAP, and HTN who presented to ER with chest tightness and palpitations. Upon arrival to the ED patient was found to be in Afib RVR with a HR 123 and a normal blood pressure. He was given Lopressor 5mg IVP once, however he was still in Afib. He had Cardioversion done y/d. Now he is NSR, however his HR in high 50's. Talked to cardiology who recommend continue taking both Flecainide and atenolol. However if he feels dizzy, lightheadedness and HR stays below 50 he can stop taking Atenolol and call his Sales Representative [employer] Dr. Figueroa. I did discuss these instructions with the pt. - Time Spent with Patient Total time spent providing and/or coordinating discharge services: - Discharge Medications Home Medications: Aspirin Enteric Coated [Aspirin EC] 81 mg PO QPM 08/13/18 [History] Atenolol [Tenormin] 50 mg PO QPM 08/13/18 [History] Calcium Carb, Citrate/Vit D3 [Calcium + D3 ER Tablet] 1 tab PO QPM 08/13/18 [ History] Cetirizine HCl [All Day Allergy] 10 mg PO QPM 08/13/18 [History] Flecainide 100 mg PO Q12HR 08/13/18 [History] Fluticasone Propionate Nasal [Flonase] 1 spr NS QPM 08/13/18 [History] Lisinopril [Zestril] 40 mg PO QPM 08/13/18 [History] Multivitamin [One Daily Essential] 1 tab PO QPM 08/13/18 [History] NIFEdipine XL (24 HR) [Procardia XL] 30 mg PO DAILY 08/13/18 [History] [place]-3/Dha/Epa/Fish Oil [Fish Oil 1,000 mg Softgel] 1 cap PO QPM 08/13/18 [ History] Omeprazole [PriLOSEC] 20 mg PO QPM 08/13/18 [History] Rivaroxaban [Xarelto] 20 mg PO QPM 08/13/18 [History] Tamsulosin HCl [Flomax] 0.4 mg PO QPM 08/13/18 [History] metFORMIN [Glucophage] 500 mg PO QPM 08/13/18 [History] Allergies/Adverse Reactions: 3 Allergy/AdvReac Type Severity Reaction Status Date / Time lovastatin AdvReac Hives Verified 08/13/18 13:14 Date of admission: 08/13/18 15:03 Primary care physician: Trenton Schneider MD Consults: 08/13/18 17:19 Consult to Cardiology [CONS] Routine Comment: Consulting Provider: Cardiology Kendy Reason for Consult: afib RVR Time Notified: 17:19 Call Completed: No - Constitutional Vitals: Temp Pulse Resp BP Pulse Ox 97.4 F L 54 16 136/80 98 08/15/18 06:51 08/15/18 06:51 08/15/18 06:51 08/15/18 06:51 08/15/18 06:51 General appearance: Present: A&O X 3, no acute distress, answers questions appropriately Exam: see below - Neck Neck exam general surgery: Present: supple - Respiratory Respiratory exam: Present: decreased breath sounds. Absent: rales, respiratory distress, rhonchi, wheezes - Cardiovascular Cardiovascular exam: Present: bradycardia, +S1, +S2. Absent: tachycardia - GI/Abdominal GI/Abdominal exam: Present: normal bowel sounds, soft. Absent: rebound, rigid, tenderness - Back Exam Back exam: Absent: CVA tenderness (L), CVA tenderness (R) - Neurological Exam Neurological exam: Present: alert, oriented X3 - Psychiatric Psychiatric exam: Present: normal affect, normal mood - Patient Status Disposition: Home, Self-Care Condition: Good Overall status at discharge: patient is back to baseline - Discharge Instructions Follow Up With: Trenton Schneider MD [Primary Care Provider] - Mike Figueroa MD [Partnered Physician] - - Diet and Activity Activity: increase activity as tolerated Diet: low salt diet
--- NOTE | 2018-08-15 17:39 | Electrocardiograph Report ---
[place] [id number] Test Date: 2018-08-14 Pat Name: Mike Royal Department: 115 Room: 3A Gender: M Patient Coordinator: : 1945 Requested By: Joana Gonzalez Order Number: [id number] Reading MD: Kin Tavarez Measurements Intervals [place] Rate: 94 P: NE: 0 QRS: -20 QRSD: 105 T: 41 QT: 367 QTc: 419 Interpretive Statements ATRIAL FIBRILLATION/FLUTTER NONSPECIFIC T-WAVE ABNORMALITY ABNORMAL RHYTHM ECG Electronically Signed On 08-15-2018 17:37:48 EDT by Kin Tavarez
== END 2018-08-15 10:18 | disposition home or self-care (01) ==
LOC: EMEROOARM 12:08 → 3ANU 12:08
PROVIDERS: ADMIT Student in an Organized Health Care Education/Training Program; ATTEND Student in an Organized Health Care Education/Training Program

== ENCOUNTER 2018-08-20 07:20 | Inpatient (IN) ==
[2018-08-20 08:04] LABS: Basophils # 0.1 K/mcL (0.0-0.2); Eosinophils # 0.2 K/mcL (0.0-0.6); Eosinophils % 2.8 %; Hematocrit 44.5 % (37.5-50.1); Hemoglobin 15.3 g/dL (12.9-16.9); Immature Granulocytes % 0.4 % (0-4); Immature Platelets 5.5 % (1.1-6.1); Lymphocytes # 2.8 K/mcL (0.6-4.6); Lymphocytes % 39.8 %; Mean Corpuscular HGB Conc 34.4 g/dL (31.6-35.5); Mean Corpuscular Hemoglobin 31.2 pg (28.0-33.3); Mean Corpuscular Volume 90.6 fL (83.0-100.0); Mean Platelet Volume 10.3 fL (9.4-12.4); Monocytes # 0.8 K/mcL (0.0-1.3); Monocytes % 10.5 %; Neutrophils # 3.2 K/mcL (1.6-8.9); Platelet Count 266 K/mcL (140-400); Red Blood Count 4.91 M/mcL (4.19-5.50); Red Cell Distribution Width 13.2 % (11.5-14.5); Segmented Neutrophils % 45.5 %
[2018-08-20 08:11] LABS: Prothrombin Time 11.6 Seconds (9.4-12.1)
[2018-08-20 08:13] LABS: Activated Partial Thrombo Time 30.1 Seconds (26.0-36.0)
[2018-08-20] MEDS ORDERED: 0.9 % Sodium Chloride 1,000 ML IVC ONE (08:17)
[2018-08-20 08:22] LABS: BUN/Creatinine Ratio 16 (6-26); Blood Urea Nitrogen 18 mg/dL (8-23); Calcium 9.2 mg/dL (8.6-10.3); Carbon Dioxide 25 mEq/L (23-29); Chloride 106 mEq/L (98-107); Glucose 131 mg/dL (70-105); Osmolality,Calculated 286 (280-300); Sodium 136 mEq/L (136-145); eGFR For Non-African Americans > 60 (> 60)
[2018-08-20 08:24] LABS: Troponin I < 0.03 ng/mL (< 0.04)
[2018-08-20 08:38] LABS: Thyroid Stimulating Hormone 1.785 mcIU/mL (0.340-5.600)
--- NOTE | 2018-08-20 08:56 | Emergency Department Note ---
Disposition Clinical Impression: Atrial fibrillation Qualifiers: Atrial fibrillation type: paroxysmal Qualified Code(s): I48.0 - Paroxysmal atrial fibrillation Disposition: Admitted As Inpatient Referrals: Trenton Schneider MD [Primary Care Provider] - General Adult HPI - General Chief complaint: ED Arrhythmia/Palpitations Stated complaint: Afib Time Seen by Provider: 08/20/18 07:24 Source: patient, family Limitations: no limitations - History of Present Illness Pain Scale: 0 - Related Data Home Medications Medication Instructions Recorded Confirmed Aspirin Enteric Coated [Aspirin EC] 81 mg PO QPM 08/13/18 08/13/18 Atenolol [Tenormin] 50 mg PO QPM 08/13/18 08/13/18 Calcium Carb, Citrate/Vit D3 1 tab PO QPM 08/13/18 08/13/18 [Calcium + D3 ER Tablet] Cetirizine HCl [All Day Allergy] 10 mg PO QPM 08/13/18 08/13/18 Flecainide 100 mg PO Q12HR 08/13/18 08/13/18 Fluticasone Propionate Nasal 1 spr NS QPM 08/13/18 08/13/18 [Flonase] Lisinopril [Zestril] 40 mg PO QPM 08/13/18 08/13/18 Multivitamin [One Daily Essential] 1 tab PO QPM 08/13/18 08/13/18 NIFEdipine XL (24 HR) [Procardia 30 mg PO DAILY 08/13/18 08/13/18 XL] [place]-3/Dha/Epa/Fish Oil [Fish Oil 1 cap PO QPM 08/13/18 08/13/18 1,000 mg Softgel] Omeprazole [PriLOSEC] 20 mg PO QPM 08/13/18 08/13/18 Rivaroxaban [Xarelto] 20 mg PO QPM 08/13/18 08/13/18 Tamsulosin HCl [Flomax] 0.4 mg PO QPM 08/13/18 08/13/18 metFORMIN [Glucophage] 500 mg PO QPM 18 08/13/18 Allergies Allergy/AdvReac Type Severity Reaction Status Date / Time lovastatin AdvReac Hives Verified 08/13/18 13:14 Past Medical History - Past Medical History Medical history: Reports: atrial fibrillation, GERD, hypertension Surgical history: Reports: cholecystectomy, orthopedic, other Psychiatric history: Reports: no psych history - Social History Smoking Status: Former smoker Smokeless Tobacco Status: No Alcohol use: Reports: heavy Drug use: Reports: none Physical Exam - General Limitations: no limitations Course Vital Signs Temperature 98.0 F 08/20/18 07:23 Pulse Rate 106 08/20/18 07:23 Respiratory Rate 20 08/20/18 07:23 Blood Pressure 134/88 08/20/18 07:23 O2 Sat by Pulse Oximetry 97 08/20/18 07:23 Temperature 98.0 F 08/20/18 07:32 Pulse Rate 96 08/20/18 08:49 Respiratory Rate 18 08/20/18 08:49 Blood Pressure 127/89 08/20/18 08:49 O2 Sat by Pulse Oximetry 96 08/20/18 08:49 Oxygen Delivery Oxygen Delivery Room Air Medical Decision Making - Lab Data Result diagrams: 08/20/18 07:55 08/20/18 07:55 Lab Results 08/20/18 08/20/18 08/20/18 Range/Units 07:55 07:55 07:55 WBC 7.1 (4.3-11.1) K/mcL RBC 4.91 (4.19-5.50) M/mcL Hgb 15.3 (12.9-16.9) g/dL Hct 44.5 (37.5-50.1) % MCV 90.6 (83.0-100.0) fL MCH 31.2 (28.0-33.3) pg MCHC 34.4 (31.6-35.5) g/dL RDW 13.2 (11.5-14.5) % Plt Count 266 (140-400) K/mcL MPV 10.3 (9.4-12.4) fL Immature Gran % 0.4 (0-4) % Seg Neutrophils % 45.5 % Lymphocytes % 39.8 % Monocytes % 10.5 % Eosinophils % 2.8 % Basophils % 1.0 % Neutrophils # 3.2 (1.6-8.9) K/mcL Lymphocytes # 2.8 (0.6-4.6) K/mcL Monocytes # 0.8 (0.0-1.3) K/mcL Eosinophils # 0.2 (0.0-0.6) K/mcL Basophils # 0.1 (0.0-0.2) K/mcL Immature Plt Fraction 5.5 (1.1-6.1) % PT 11.6 (9.4-12.1) Seconds INR 1.0 APTT 30.1 (26.0-36.0) Seconds Sodium 136 (136-145) mEq/L Potassium 4.0 (3.5-5.1) mEq/L Chloride 106 (98-107) mEq/L Carbon Dioxide 25 (23-29) mEq/L BUN 18 (8-23) mg/dL Creatinine 1.14 (0.70-1.30) mg/dL Est GFR ( Amer) > 60 (> 60) Est GFR (Non-Af Amer) > 60 (> 60) BUN/Creatinine Ratio 16 (6-26) Glucose 131 H (70-105) mg/dL Calculated Osmolality 286 (280-300) Calcium 9.2 (8.6-10.3) mg/dL Troponin I < 0.03 (< 0.04) ng/mL TSH 1.785 (0.340-5.600) mcIU/mL Attestation Statement - Attestation Attestation: I examined this patient and my medical decision-making was reviewed with the Resident Physician. I agree with the documented findings, disposition and treatment plan as described except to the extent set forth below. 73 year old male presents to the eD with paroxysmal atrial fibrillation and states that he has been on afib for th past 6 years and typcally self converts out of it and just last week had to be cardioverted per cards for his afib secondary to being hypotensive and RVR then. which was successful and he convereted back to NSR. Jewell states on satruday he felt as though he went back into atrial fib with RVR while he was at an [employer] game and states that since then he has been intermittment. Currenlty with a rate of 96-99 and afib possible flutter. We have consulted with cards and they would amalia to see jewell in consult with admission to medicine
--- NOTE | 2018-08-20 09:00 | Emergency Department Note ---
Disposition Clinical Impression: Atrial fibrillation Qualifiers: Atrial fibrillation type: paroxysmal Qualified Code(s): I48.0 - Paroxysmal atrial fibrillation Disposition: Admitted As Inpatient Referrals: Trenton Schneider MD [Primary Care Provider] - Forms: ED Satisfaction Letter Arrhythmia/Palpitations HPI - General Chief Complaint: ED Arrhythmia/Palpitations Stated Complaint: Afib Time Seen by Provider: 08/20/18 07:24 Source: patient, family Limitations: no limitations Nursing Notes Reviewed: Yes Vital Signs Reviewed: Yes - History of Present Illness HPI Narrative: 73-year-old male presents emergency department with concern for 36 hours of palpitations. Patient stated he was exerting himself on Monday when this all started at the football game. Patient denies any chest pain, pressure, tightness, shortness breath, fever. Patient reports having known atrial fibrillation which he takes medications for. States that he is in sinus rhythm and was in the past 6 years until last week when he went out of sinus rhythm. Patient currently taking flecainide, atenolol. Reports taking all medications as prescribed. States that he received synchronized cardioversion last Monday. Available cardiology appointment is September 19. - Related Data Home Medications Medication Instructions Recorded Confirmed Aspirin Enteric Coated [Aspirin EC] 81 mg PO QPM 08/13/18 08/20/18 Atenolol [Tenormin] 50 mg PO QPM 08/13/18 08/20/18 Calcium Carb, Citrate/Vit D3 1 tab PO QPM 08/13/18 08/20/18 [Calcium + D3 ER Tablet] Cetirizine HCl [All Day Allergy] 10 mg PO QPM 08/13/18 08/20/18 Flecainide 100 mg PO Q12HR 08/13/18 08/20/18 Fluticasone Propionate Nasal 1 spr NS QPM 08/13/18 08/20/18 [Flonase] Lisinopril [Zestril] 40 mg PO QPM 08/13/18 08/20/18 Multivitamin [One Daily Essential] 1 tab PO QPM 18 08/20/18 NIFEdipine XL (24 HR) [Procardia 30 mg PO DAILY 08/13/18 08/20/18 XL] [place]-3/Dha/Epa/Fish Oil [Fish Oil 1 cap PO QPM 08/13/18 08/20/18 1,000 mg Softgel] Omeprazole [PriLOSEC] 20 mg PO QPM 08/13/18 08/20/18 Rivaroxaban [Xarelto] 20 mg PO QPM 08/13/18 08/20/18 Tamsulosin HCl [Flomax] 0.4 mg PO QPM 08/13/18 08/20/18 Metformin HCl [Metformin HCl ER] 500 mg PO QPM 08/20/18 08/20/18 Allergies Allergy/AdvReac Type Severity Reaction Status Date / Time lovastatin AdvReac Hives Verified 08/13/18 13:14 All systems ED: reviewed and negative except as stated. Review of Systems: As Per HPI Constitutional: Denies: fever Cardiovascular: Reports: palpitations. Denies: chest pain, syncope Respiratory: Denies: dyspnea Gastrointestinal: Denies: abdominal pain Endocrine: Denies: fatigue Past Medical History - Past Medical History Medical history: Reports: atrial fibrillation, GERD, hypertension Surgical history: Reports: cholecystectomy, orthopedic, other Psychiatric history: Reports: no psych history - Social History Smoking Status: Former smoker Smokeless Tobacco Status: No Alcohol use: Reports: heavy Drug use: Reports: none Physical Exam - General Limitations: no limitations General appearance: alert, in no apparent distress - Head Head exam: normocephalic - Eye Eye exam: Present: EOMI - ENT ENT exam: normal oropharynx - Neck Neck exam: Present: trachea midline - Chest Chest inspection: Present: symmetric chest wall rise - Respiratory Respiratory exam: Present: normal lung sounds bilaterally. Absent: respiratory distress - Cardiovascular Cardiovascular exam: Present: tachycardia, irregular rhythm, normal heart sounds - Abdominal Exam Abdominal exam: Present: soft, Non-Tender. Absent: distention, guarding, rebound, rigidity - Extremities Exam Extremities exam: Present: normal capillary refill - Back Exam Back exam: Present: full ROM - Neurological Exam Neurological exam: Present: alert, oriented X3 - Psychiatric Psychiatric exam: Present: normal affect, normal mood Course Vital Signs Temperature 98.0 F 08/20/18 07:23 Pulse Rate 106 08/20/18 07:23 Respiratory Rate 20 08/20/18 07:23 Blood Pressure 134/88 08/20/18 07:23 O2 Sat by Pulse Oximetry 97 08/20/18 07:23 Temperature 98.0 F 08/20/18 07:32 Pulse Rate 96 08/20/18 08:49 Respiratory Rate 18 08/20/18 10:13 Blood Pressure 139/85 08/20/18 10:13 O2 Sat by Pulse Oximetry 96 08/20/18 08:49 Oxygen Delivery Oxygen Delivery Room Air Arrhythmia/Palpitations - [facility] Narrative Medical decision making narrative: 73-year-old male presents emergency Department with 36 hours of palpitations. Patient has known atrial fibrillation which he has been hospitalized and received cardioversion last week which places him into sinus rhythm. Patient normally is in sinus rhythm under use of his medications. Taking medications as prescribed. Patient atrial fibrillation. Rate went as high as the 110s. Patient not reporting any symptoms. Chest x-ray was normal. Troponin was negative. EKG did not reveal any evidence of ischemia. Precipitating factor for patient going back into atrial fibrillation most likely secondary to exertion as he was recently at a football game and was climbing up the stairs. I spoke with Dr. Tavarez, the diagnostic technologist semiconductor technician. He agreed to follow patient on the floor as a consult. Requested I admit to medicine as patient had recent cardioversion last week with hospitalization and does not have follow -up set up in the near future. Spoke with Dr. Merino, who agreed to accept the patient for admission. Patient agree with plan. Discussed at bedside. Patient was not in any distress at time of admission. Chest X-Ray 08/20/18 07:31 IMPRESSION: No acute cardiopulmonary process. D/ / 08/20/2018 08:15:03 Tete Parker MD / [employer]us Interpreting Provider: Tete Parker MD Vital Signs Temperature 98.0 F 08/20/18 07:23 Pulse Rate 106 08/20/18 07:23 Respiratory Rate 20 08/20/18 07:23 Blood Pressure 134/88 08/20/18 07:23 O2 Sat by Pulse Oximetry 97 08/20/18 07:23 Temperature 98.0 F 08/20/18 07:32 Pulse Rate 96 08/20/18 08:49 Respiratory Rate 18 08/20/18 10:13 Blood Pressure 139/85 08/20/18 10:13 O2 Sat by Pulse Oximetry 96 08/20/18 08:49 Oxygen Delivery Oxygen Delivery Room Air - Lab Data Result diagrams: 08/20/18 07:55 08/20/18 07:55 Lab Results 08/20/18 08/20/18 08/20/18 Range/Units 07:55 07:55 07:55 WBC 7.1 (4.3-11.1) K/mcL RBC 4.91 (4.19-5.50) M/mcL Hgb 15.3 (12.9-16.9) g/dL Hct 44.5 (37.5-50.1) % MCV 90.6 (83.0-100.0) fL MCH 31.2 (28.0-33.3) pg MCHC 34.4 (31.6-35.5) g/dL RDW 13.2 (11.5-14.5) % Plt Count 266 (140-400) K/mcL MPV 10.3 (9.4-12.4) fL Immature Gran % 0.4 (0-4) % Seg Neutrophils % 45.5 % Lymphocytes % 39.8 % Monocytes % 10.5 % Eosinophils % 2.8 % Basophils % 1.0 % Neutrophils # 3.2 (1.6-8.9) K/mcL Lymphocytes # 2.8 (0.6-4.6) K/mcL Monocytes # 0.8 (0.0-1.3) K/mcL Eosinophils # 0.2 (0.0-0.6) K/mcL Basophils # 0.1 (0.0-0.2) K/mcL Immature Plt Fraction 5.5 (1.1-6.1) % PT 11.6 (9.4-12.1) Seconds INR 1.0 APTT 30.1 (26.0-36.0) Seconds Sodium 136 (136-145) mEq/L Potassium 4.0 (3.5-5.1) mEq/L Chloride 106 (98-107) mEq/L Carbon Dioxide 25 (23-29) mEq/L BUN 18 (8-23) mg/dL Creatinine 1.14 (0.70-1.30) mg/dL Est GFR ( Amer) > 60 (> 60) Est GFR (Non-Af Amer) > 60 (> 60) BUN/Creatinine Ratio 16 (6-26) Glucose 131 H (70-105) mg/dL Calculated Osmolality 286 (280-300) Calcium 9.2 (8.6-10.3) mg/dL Troponin I < 0.03 (< 0.04) ng/mL TSH 1.785 (0.340-5.600) mcIU/mL - EKG Data EKG attestation: Yes I reviewed and interpreted this EKG. EKG results narrative: 7:35 EKG #1 Atrial flutter with rate at 99 bpm. There are a few flutter waves present. No ischemic ST changes. Left axis deviation. 8:43 EKG #2 Heart rate 96 bpm, no P waves, QRS duration 102 ms, QT 383 ms, QTC 484 ms, left axis deviation. A. fib with rate at 96 beats for minute. There is no evidence of any ischemic ST changes.
--- NOTE | 2018-08-20 10:26 | Internal Med History&Physical ---
Date of Encounter: 08/20/18 Time of Encounter: 10:24 Internal Medicine - H&P: HPI Chief complaint: palpitations Admitted From: Home Plans for Post Hospital Care: Home History of present illness: Mr. Royal is a 73 year old male with past medical history of hypertension, prediabetes, GERD, obstructive sleep apnea on CPAP and paroxysmal A. fib coming in complain of palpitations since last 2 days. Patient had a cardioversion last week for his A. fib. Patient has been on multiple tach and later on on flecainide with the intention to keep him in sinus rhythm. He has been taking his medication mostly irregularly however missed about 1-2 doses or past 1-2 weeks. He also has not been completely compliant is using CPAP for his sleep apnea over the past one week. He comes in with 2 day history of palpitation and tachycardia he which he measured was maximum of 128. Denied any chest pain , nausea, vomiting, palpitation or shortness of breath. Denies abdominal pain back pain bowel or urinary complaints. Denies any skin or joint complaints. In ER patient received 1 L of NS. His heart rate was in 100s when he came in and now is in the high 80s low 90s. His EKG showed atrial fibrillation. On interview patient is without any complaints. Past Med Surg Social Fam HX - Past Medical History Medical history: atrial fibrillation, GERD, hypertension Additional medical history: sleep apnea Psychiatric history: no psych history - Past Surgical History Surgical History: cholecystectomy, orthopedic, other Additional surgical history: rotator cuff surgery - Social History Smoking Status: Former smoker Smokeless Tobacco Status: No Alcohol use: heavy Drug use: none - Family History Mother Living Status: Hx Family Cardiac Disorders: Yes (Pacer, bradycardia) Father Living Status: Hx Family Cancer: Yes (Lung) Internal Medicine - H&P: Meds Aspirin Enteric Coated [Aspirin EC] 81 mg PO QPM 08/13/18 [History] Atenolol [Tenormin] 50 mg PO QPM 08/13/18 [History] Calcium Carb, Citrate/Vit D3 [Calcium + D3 ER Tablet] 1 tab PO QPM 08/13/18 [ History] Cetirizine HCl [All Day Allergy] 10 mg PO QPM 08/13/18 [History] Flecainide 100 mg PO Q12HR 08/13/18 [History] Fluticasone Propionate Nasal [Flonase] 1 spr NS QPM 08/13/18 [History] Lisinopril [Zestril] 40 mg PO QPM 08/13/18 [History] Multivitamin [One Daily Essential] 1 tab PO QPM 08/13/18 [History] NIFEdipine XL (24 HR) [Procardia XL] 30 mg PO DAILY 08/13/18 [History] [place]-3/Dha/Epa/Fish Oil [Fish Oil 1,000 mg Softgel] 1 cap PO QPM 08/13/18 [ History] Omeprazole [PriLOSEC] 20 mg PO QPM 08/13/18 [History] Rivaroxaban [Xarelto] 20 mg PO QPM 08/13/18 [History] Tamsulosin HCl [Flomax] 0.4 mg PO QPM 08/13/18 [History] Metformin HCl [Metformin HCl ER] 500 mg PO QPM 08/20/18 [History] 3 Allergy/AdvReac Type Severity Reaction Status Date / Time lovastatin AdvReac Hives Verified 08/13/18 13:14 All Systems PM: A 10-system review of systems was performed and is negative for pertinent findings except as documented above in the HPI. - Constitutional Vitals: Temp Pulse Resp BP Pulse Ox 98.0 F 96 18 127/89 96 08/20/18 07:32 08/20/18 08:49 08/20/18 08:49 08/20/18 08:49 08/20/18 08:49 General appearance: Present: A&O X 3, no acute distress Exam: Constitutional: Vitals as noted. Conversant. No Apparent Distress. Well groomed. Obese. No obvious deformities. Eyes exam: Sclera white, conjunctiva clear, no lid lag, PEARLA. ENT exam: Grossly normal hearing. Nasophargeal and Oropharyngeal exam unremarkable. Moist mucus membranes. No JVD, carotid bruit, no cervical lymphadenopathy. no thyromegaly or mass. Respiratory exam: Clear to auscultation bilaterally. No accessory muscle use, rales, rhonchi or wheezes Cardiovascular exam: Irregular heart rate, +S1, +S2. no murmur, gallop, rubs. No chest wall tenderness GI/Abdominal exam: Soft, Non-tender, Non-distended, normal bowel sounds, soft, no peritoneal signs. no orgenomegaly or mass appreciated. no hernia. Musculoskeletal exam: full ROM, no atrophy or deformity noted. no edema or cyanosis, warm, pulses palpable and symmetrical in UE/LE. no calf tenderness. Neurological exam: AO X3, CN II-XII grossly intact, grossly normal motor and sensory exam. Normal muscle tone and reflexes. no focal deficits. no pronater drift, facial droop, speech deficit. Skin exam: No skin rash, lesions or ulcers noted. no purpura or ecchymosis. Internal Med - H&P Results - Labs CBC & Chem 7: 08/20/18 07:55 08/20/18 07:55 Labs: Short CBC 08/20/18 Range/Units 07:55 WBC 7.1 (4.3-11.1) K/mcL Hgb 15.3 (12.9-16.9) g/dL Hct 44.5 (37.5-50.1) % Plt Count 266 (140-400) K/mcL Neutrophils # 3.2 (1.6-8.9) K/mcL BMP 08/20/18 07:55 Sodium 136 Potassium 4.0 Chloride 106 Carbon Dioxide 25 BUN 18 Creatinine 1.14 Glucose 131 H Calcium 9.2 Cardiac Enzymes 08/20/18 Range/Units 07:55 Troponin I < 0.03 (< 0.04) ng/mL - Impressions ITS Impressions Chest X-Ray 08/20/18 07:31 IMPRESSION: No acute cardiopulmonary process. D/ / 08/20/2018 08:15:03 Tete Parker MD / lexus Interpreting Provider: Tete Parker MD - Assessment and plan (1) Atrial fibrillation Current Visit: Yes Status: Acute Assessment and plan: Currently patient in atrial fibrillation with rate controlled - Continue home atenolol, flecainide and Xarelto. Continue telemetry - Patient admitted given he recently had cardioversion and intention to keep patient in sinus rhythm with cardiology consultation. - Cardiology consulted for further management. Qualifiers: Atrial fibrillation type: paroxysmal Qualified Code(s): I48.0 - Paroxysmal atrial fibrillation (2) Prediabetes Current Visit: No Status: Acute Assessment and plan: - Continue home metformin and Accu-Cheks (3) Obstructive sleep apnea Current Visit: Yes Status: Acute Assessment and plan: - We will keep patient on CPAP overnight (4) GERD (gastroesophageal reflux disease) Current Visit: Yes Status: Acute Assessment and plan: - Continue home omeprazole Qualifiers: Qualified Code(s): K21.9 - Gastro-esophageal reflux disease without esophagitis (5) DVT prophylaxis Current Visit: Yes Status: Acute Assessment and plan: - Low risk, ambulatory and on anticoagulation - Time Spent With Patient Total time spent is greater than 50% in coordination of care (as documented) at patient's floor/unit and/or counseling patient: - VTE Reasons for not Prescribing Prophylaxis: Treatment not Indicated - Low risk for VTE
--- NOTE | 2018-08-20 13:21 | Cardiology Consult Note ---
Date of Encounter: 08/20/18 Time of Encounter: 13:20 Assessment and Plan (1) Atrial fibrillation with RVR Current Visit: No Status: Acute Per Cardiology: Troponin negative 1, TSH stable. Taking flecainide 100 mg by mouth every 12 hours and atenolol 50 mg by mouth daily. Of note patient on nifedipine as well. Telemetry shows A. flutter/fib with heart rate in 80s to 90s. Will discontinue atenolol and nifedipine. Will start Lopressor 25 mg by mouth twice a day and titrate as needed. Will decrease lisinopril from 40 mg to 20mg by mouth daily to allow for titration of beta adriana as needed. MISSY from last week showed severely dilated left atrium, mild MR, mild AR. Discussed and reviewed with Dr. Tavarez, we will proceed with non-exercise nuclear stress test tomorrow. We will discontinue flecainide for now. We will continue his rectal strategy and consider EP consult once ischemic evaluation complete. TSH and magnesium stable. Encouraged to continue decreased intake of caffeine. Regarding long-term anticoagulation, on Xarelto 20mg PO daily, kidney function stable. Previous CV testing: ECHO REPORT 2010 Impression: Left Ventricle * LVEF 60-65 % * Normal size and function. * Normal LV thickness. Left Atrium * Mildly dilated STRESS TEST REPORT 2015 Impression: The exercise capacity was good. Patient exercised for 9:41 minutes on a Geovanny protocol, achieving 10 METs and 78% of max predicted heart rate. There were borderline ischemia ECG changes seen in the inferior lead at peak exercise / early recovery. Gated LVEF = 67%. Perfusion imaging was negative for ischemia or infarct. Please note that the sensitivity of this test for detecting ischemia is significantly decreased as the patient only reached 78% of max predicted heart rate and work load was relatively low (double product = 18,252. (2) Obstructive sleep apnea Current Visit: Yes Status: Chronic Per Cardiology: Hx LUZMARIA. Compliance reinforced. Discussion w patient/family: The assessment and plan as outlined above was discussed with the patient and/or family members who expressed understanding and agreement. All questions were answered. Thank you for involving us in the care of your patient. Please call with any questions. History of Present Illness Consult date: 08/20/18 Requesting physician: Demetrio Merino Consult reason: Afib Chief complaint: Irregular HR History of present illness: Previous medical records reviewed: "Mr. Royal is a 73 year old male with past medical history of hypertension, prediabetes, GERD, obstructive sleep apnea on CPAP and paroxysmal A. fib coming in complain of palpitations since last 2 days. Patient had a cardioversion last week for his A. fib. Patient has been on multiple tach and later on on flecainide with the intention to keep him in sinus rhythm. He has been taking his medication mostly irregularly however missed about 1-2 doses or past 1-2 weeks. He also has not been completely compliant is using CPAP for his sleep apnea over the past one week. He comes in with 2 day history of palpitation and tachycardia he which he measured was maximum of 128". Cardiology consult for recurrent atrial fibrillation with RVR. Patient reports prior to recent hospitalization a week ago he missed 3 doses of morning flecainide. He reports with past one week has not missed any doses of flecainide. He reports overall about a 75% compliance with sleep apnea CPAP machine however the past one week has been 100% compliant. He denies any chest pain. He reports he attended [employer] football game this past weekend and climbed up to the C Deck-- reports rapid heart rate that time and really never has subsided. He denies any dizziness, syncope, falls. Reports compliance with anticoagulation and denies any missed doses. Denies any active bleeding or blood loss. He reports he has been on flecainide for about 6 years. He reports he smoked about a pack and a half per day for 18 years quit smoking about 35 years ago. Denies any past history of CAD. He does report some increase overall dyspnea on exertion and fatigue with mowing his lawn. Reports recently decreased overall caffeine intake by cutting down coffee and Coca-Cola beverages. Denies any swelling or edema. Seen with at bedside. Past Med Surg Social Fam HX - Past Medical History Attestation: Yes The following information was validated with the patient. Source: patient, old records reviewed, obtained from family Medical history: atrial fibrillation, GERD, hypertension Additional medical history: sleep apnea Psychiatric history: no psych history - Past Surgical History Surgical History: cholecystectomy, orthopedic, other Additional surgical history: rotator cuff surgery - Social History Smoking Status: Former smoker Smokeless Tobacco Status: No Alcohol use: heavy Drug use: none - Family History Mother Living Status: Hx Family Cardiac Disorders: Yes (Pacer, bradycardia) Father Living Status: Hx Family Cancer: Yes (Lung) Medications and Allergies RX: Aspirin Enteric Coated [Aspirin EC] 81 mg PO QPM 08/13/18 [History] RX: Atenolol [Tenormin] 50 mg PO QPM 08/13/18 [History] RX: Calcium Carb, Citrate/Vit D3 [Calcium + D3 ER Tablet] 1 tab PO QPM 08/13/18 [History] RX: Cetirizine HCl [All Day Allergy] 10 mg PO QPM 08/13/18 [History] RX: Flecainide 100 mg PO Q12HR 08/13/18 [History] RX: Fluticasone Propionate Nasal [Flonase] 1 spr NS QPM 08/13/18 [History] RX: Lisinopril [Zestril] 40 mg PO QPM 08/13/18 [History] RX: Multivitamin [One Daily Essential] 1 tab PO QPM 08/13/18 [History] RX: NIFEdipine XL (24 HR) [Procardia XL] 30 mg PO DAILY 08/13/18 [History] RX: [place]-3/Dha/Epa/Fish Oil [Fish Oil 1,000 mg Softgel] 1 cap PO QPM 08/13/18 [ History] RX: Omeprazole [PriLOSEC] 20 mg PO QPM 08/13/18 [History] RX: Rivaroxaban [Xarelto] 20 mg PO QPM 08/13/18 [History] RX: Tamsulosin HCl [Flomax] 0.4 mg PO QPM 08/13/18 [History] Metformin HCl [Metformin HCl ER] 500 mg PO QPM 08/20/18 [History] 3 Allergy/AdvReac Type Severity Reaction Status Date / Time lovastatin AdvReac Hives Verified 08/13/18 13:14 All Systems Review: The remainder of the systems were reviewed and are negative - Constitutional Constitutional: fatigue - Cardiovascular Cardiovascular: as per HPI, dyspnea on exertion, irregular heart rhythm, rapid heart rate Physical Examination Vital Signs, Last 4 Hours Temp Pulse Resp BP Pulse Ox 08/20/18 11:10 97.3 F L 94 16 119/75 97 General: Conversant, No Apparent Distress HEENT: Atraumatic, Normocephaly, Mucus Membranes Moist Neck: No JVD, Normal carotid pulses Cardiac: Normal S1 and S2, No Murmur, Other (Irregularly irregular) Lungs: Normal Breath Sounds, No Wheeze, Rales, Rhonchi Neuro: Alert and responsive, No focal deficits noted Abdomen: Soft, Non-Tender Skin: No rashes noted on visualized skin Musculoskeletal: No Chest Wall Tenderness Extremities: No Clubbing, No Cyanosis, No Edema, Normal Pulses Results 08/20/18 07:55 08/20/18 07:55 Laboratory Tests 08/20/18 08/20/18 08/20/18 07:55 07:55 07:55 Hgb 15.3 Hct 44.5 INR 1.0 Creatinine 1.14 Est GFR (Non-Af Amer) > 60 Troponin I < 0.03 TSH 1.785 ITS Impressions Chest X-Ray 08/20/18 07:31 IMPRESSION: No acute cardiopulmonary process. D/ / 08/20/2018 08:15:03 Tete Parker MD / lexus Interpreting Provider: Tete Parker MD Active Medications Aspirin (Aspirin Ec) 81 mg PO QPM [facility] Stop: 02/19/19 18:01 Atenolol (Tenormin) 50 mg PO QPM [facility] Stop: 02/19/19 18:01 Calcium Carbonate (Tums) 500 mg PO QPM [facility] Stop: 02/19/19 18:01 Flecainide Acetate (Flecainide) 100 mg PO Q12HR [facility] Stop: 02/19/19 18:01 Fluticasone Propionate (Flonase) 50 mcg NS QPM [facility] PRN Reason: Protocol Stop: 02/19/19 18:01 Lisinopril (Zestril) 40 mg PO QPM [facility] Stop: 02/19/19 18:01 Loratadine (Claritin) 10 mg PO QPM [facility] Stop: 02/19/19 18:01 Metformin HCl (Glucophage) 500 mg PO QPM [facility] Stop: 02/19/19 18:01 Multivitamins/Calcium (Thera M Plus) 1 tab PO QPM [facility] Stop: 03/26/19 18:01 Nifedipine (Procardia Xl) 30 mg PO DAILY [facility] PRN Reason: Protocol Stop: 02/20/19 09:01 Omeprazole (Prilosec) 20 mg PO QPM [facility] PRN Reason: Protocol Stop: 02/19/19 18:01 Rivaroxaban (Xarelto) 20 mg PO 1700 [facility] Stop: 02/19/19 17:01 Tamsulosin HCl (Flomax) 0.4 mg PO QPM [facility] PRN Reason: Protocol Stop: 02/19/19 18:01 Vitamin D (Vitamin D) 1,000 unit PO DAILY [facility] Stop: 02/20/19 09:01 - Imaging and Cardiology Stress Test: pending Other Results: MISSY reviewed - EKG Interpretation EKG results cardiology: personally reviewed (Atrial flutter in the 80s to 90s), other (avg HR 97 on tele) Consult Discharge Plan - Plan Referrals: Trenton Schneider MD [Primary Care Provider] -
[2018-08-20] MEDS ORDERED: NON-FORMULARY MEDICATION 1 EACH EACH (Omega-3/Dha/Epa/Fish Oil [Fish Oil 1,000 Mg Softgel] PO SCH (18:00)
[2018-08-20] MEDS ORDERED: *HR* Metformin 500 MG TABLET PO SCH (18:00)
[2018-08-20] MEDS ORDERED: Lisinopril 20 MG TABLET PO SCH (18:00)
[2018-08-20] MEDS: Loratadine 10 MG TABLET PO SCH (18:13)
[2018-08-20] MEDS: Fluticasone Propionate Nasal 50 MCG/SPRAY BOTTLE NS SCH (18:13)
[2018-08-20] MEDS: Aspirin Enteric Coated 81 MG Tablet PO SCH (18:13)
[2018-08-20] MEDS: Multivit/Ca/Min/Fe/FA 1 TAB TABLET PO SCH (18:13)
[2018-08-20] MEDS: *HR* Rivaroxaban 10 MG TABLET PO SCH (18:14)
[2018-08-20] MEDS: Lisinopril 20 MG TABLET PO SCH (18:14)
--- NOTE | 2018-08-20 18:30 | Electrocardiograph Report ---
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
--- NOTE | 2018-08-20 18:31 | Electrocardiograph Report ---
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
[2018-08-21] MEDS: Regadenoson 0.4 MG/5 ML SYRINGE IVP ONE ×2 (08:32→10:44)
[2018-08-21] MEDS ORDERED: NIFEdipine XL (24 HR) 30 MG TAB.ER.24 PO SCH (09:00)
[2018-08-21] MEDS: Cholecalciferol (D-3) 1,000 UNIT TABLET PO SCH (09:42)
--- NOTE | 2018-08-21 10:34 | Internal Med Progress Note ---
Hospitalist Progress Note - Encounter Date of Encounter: 08/21/18 Time of Encounter: 09:00 - Exam Vitals: Temp Pulse Resp BP Pulse Ox 97.7 F 111 14 103/66 93 08/21/18 10:21 08/21/18 10:21 08/21/18 10:21 08/21/18 10:21 08/21/18 10:21 Exam: Constitutional: Vitals as noted. Conversant. No Apparent Distress. Well groomed. Obese. No obvious deformities. Eyes exam: Sclera white, conjunctiva clear, no lid lag, PEARLA. ENT exam: Grossly normal hearing. Nasophargeal and Oropharyngeal exam unremarkable. Moist mucus membranes. No JVD, carotid bruit, no cervical lymphadenopathy. no thyromegaly or mass. Respiratory exam: Clear to auscultation bilaterally. No accessory muscle use, rales, rhonchi or wheezes Cardiovascular exam: Irregular heart rate, +S1, +S2. no murmur, gallop, rubs. No chest wall tenderness GI/Abdominal exam: Soft, Non-tender, Non-distended, normal bowel sounds, soft, no peritoneal signs. no orgenomegaly or mass appreciated. no hernia. Musculoskeletal exam: full ROM, no atrophy or deformity noted. no edema or cyanosis, warm, pulses palpable and symmetrical in UE/LE. no calf tenderness. Neurological exam: AO X3, CN II-XII grossly intact, grossly normal motor and sensory exam. Normal muscle tone and reflexes. no focal deficits. no pronater drift, facial droop, speech deficit. Skin exam: No skin rash, lesions or ulcers noted. no purpura or ecchymosis. - Assessment and Plan (1) Atrial fibrillation Current Visit: Yes Status: Acute Assessment and Plan: Pt came in with palpitations and afib with RVR. Cardiology following. Had a workup for ischemia due to persistent afib. Had a nuclear stress test done which came back negative Cardiology plan for EP study and EP has been consulted. Continue beta adriana and xarelto (2) Prediabetes Current Visit: No Status: Acute Assessment and Plan: Pt's A1c is 5.7. No indication for hypoglycemics (3) Obstructive sleep apnea Current Visit: Yes Status: Chronic Assessment and Plan: Cotninue CPAP (4) GERD (gastroesophageal reflux disease) Current Visit: Yes Status: Acute Assessment and Plan: - Continue home omeprazole (5) DVT prophylaxis Current Visit: Yes Status: Acute Assessment and Plan: - Low risk, ambulatory and on anticoagulation - Time Spent with Patient Total time spent is greater than 50% in coordination of care (as documented) at patient's floor/unit and/or counseling patient: Internal Medicine: Result - Labs CBC & Chem 7: 08/20/18 07:55 08/20/18 07:55 - ABG Interpretation ABG results: PT/INR, D-dimer PT 11.6 Seconds (9.4-12.1) 08/20/18 07:55 - VTE Reasons for not Prescribing Prophylaxis: Treatment not Indicated - Low risk for VTE Consult Discharge Plan - Plan Referrals: Trenton Schneider MD [Primary Care Provider] - (1) Atrial fibrillation Qualifiers: Atrial fibrillation type: persistent Qualified Code(s): I48.1 - Persistent atrial fibrillation
--- NOTE | 2018-08-21 11:03 | Electrophysiology Consult Note ---
<Umu Mendoza - Last Filed: 08/21/18 11:13> Date of Encounter: 08/21/18 Time of Encounter: 07:30 Assessment and Plan (1) Atrial flutter Current Visit: Yes Status: Chronic Per EP: -Known paroxysmal atrial fibrillation/flutter. -On flecanide, recent admission last week after missed doses. Was cardioverted and discharged. -Since last admission, denies missed doses of flecanide, however is now back in atrial flutter. -HR controlled, average HR 85, previous 12 hours. Currently on BB. -Stress test today negative for ischemia or infarct. -Recent MISSY with Left Ventricle * Normal size and function. Right Ventricle * The right ventricle was normal in size and systolic function. Left Atrium * Severely dilated. * No thrombus present. -Flecanide has been held since admission. -ON xarelto for anticoagulation, denies missed doses since discharge. -ECG 08/20/18 0843 with a.flutter, HR 96. QRS 102ms, QT 383, QTc 484ms. -Will discuss and review with Dr.John Figueroa for further recommendations. Qualifiers: Atrial flutter type: unspecified Qualified Code(s): I48.92 - Unspecified atrial flutter (2) Encounter for monitoring anti-arrhythmic therapy Current Visit: Yes Status: Acute Per EP: -Previously on flecanide. -Will discuss and review with Dr.John Figueroa, and make changes as recommended. Discussion w patient/family: The assessment and plan as outlined above was discussed with the patient who expressed understanding and agreement. All questions were answered. Thank you for involving us in the care of your patient. Please call with any questions. Discussed and reviewed with Dr.John Figueroa. History of Present Illness Consult date: 08/21/18 Requesting physician: Clinton De La Cruz Consult reason: a.fib, on flecanide Chief complaint: palpitations History of present illness: Mr. Royal is a 73 year old male with a relevant past medical history of hypertension, prediabetes, GERD, obstructive sleep apnea on CPAP and paroxysmal A. fib coming in complain of palpitations since last 2 days. Patient had a cardioversion last week for his A. fib. For the past 6 years, patient had been on flecanide without recurrence of a.fib, however missed several doses of flecanide and presented to [facility] in a.fib. Patient was resumed on his flecanide and then cardioverted and discharged home. Patient states since discharge last week, he has not missed any doses of flecanide. Patient states on Monday he was exerting himself by climbing up stairs and noticed he was in a.fib. Patient reports a.fib has been persistent since then. Patient was seen and examined in stress lab room. Past Med Surg Social Fam HX - Past Medical History Attestation: Yes The following information was validated with the patient. Source: patient, old records reviewed Medical history: atrial fibrillation, GERD, hypertension Additional medical history: sleep apnea Psychiatric history: no psych history - Past Surgical History Surgical History: cholecystectomy, orthopedic, other Additional surgical history: rotator cuff surgery - Social History Smoking Status: Former smoker Smokeless Tobacco Status: No Alcohol use: heavy Drug use: none - Family History Mother Living Status: Hx Family Cardiac Disorders: Yes (Pacer, bradycardia) Father Living Status: Hx Family Cancer: Yes (Lung) Medications and Allergies Aspirin Enteric Coated [Aspirin EC] 81 mg PO QPM 18 [History] Atenolol [Tenormin] 50 mg PO QPM 08/13/18 [History] Calcium Carb, Citrate/Vit D3 [Calcium + D3 ER Tablet] 1 tab PO QPM 08/13/18 [ History] Cetirizine HCl [All Day Allergy] 10 mg PO QPM 18 [History] Flecainide 100 mg PO Q12HR 08/13/18 [History] Fluticasone Propionate Nasal [Flonase] 1 spr NS QPM 08/13/18 [History] Lisinopril [Zestril] 40 mg PO QPM 18 [History] Multivitamin [One Daily Essential] 1 tab PO QPM 08/13/18 [History] NIFEdipine XL (24 HR) [Procardia XL] 30 mg PO DAILY 08/13/18 [History] [place]-3/Dha/Epa/Fish Oil [Fish Oil 1,000 mg Softgel] 1 cap PO QPM 18 [ History] Omeprazole [PriLOSEC] 20 mg PO QPM 18 [History] Rivaroxaban [Xarelto] 20 mg PO QPM 09/17/18 [History] Tamsulosin HCl [Flomax] 0.4 mg PO QPM 08/13/18 [History] Metformin HCl [Metformin HCl ER] 500 mg PO QPM 08/20/18 [History] 3 Allergy/AdvReac Type Severity Reaction Status Date / Time lovastatin AdvReac Hives Verified 08/13/18 13:14 All Systems Review: The remainder of the systems were reviewed and are negative - Cardiovascular Cardiovascular: as per HPI, dyspnea on exertion, palpitations Physical Examination Vital Signs, Last 4 Hours Temp Pulse Resp BP Pulse Ox 08/21/18 10:21 97.7 F 111 14 103/66 93 General: Conversant, No Apparent Distress HEENT: Atraumatic, Normocephaly, Mucus Membranes Moist Neck: No JVD, Normal carotid pulses Cardiac: Normal S1 and S2, No Murmur, Other (Irregularly irregular ) Lungs: Normal Breath Sounds, No Wheeze, Rales, Rhonchi Neuro: Alert and responsive, No focal deficits noted Abdomen: Soft, Non-Tender Skin: No rashes noted on visualized skin Musculoskeletal: No Chest Wall Tenderness Extremities: No Clubbing, No Cyanosis, No Edema, Normal Pulses Results 08/20/18 07:55 08/20/18 07:55 Vital Signs Temperature 98.0 F 08/20/18 07:23 Pulse Rate 106 08/20/18 07:23 Respiratory Rate 20 08/20/18 07:23 Blood Pressure 134/88 08/20/18 07:23 O2 Sat by Pulse Oximetry 97 08/20/18 07:23 Temperature 97.7 F 08/21/18 10:21 Pulse Rate 111 08/21/18 10:21 Respiratory Rate 14 08/21/18 10:21 Blood Pressure 103/66 08/21/18 10:21 O2 Sat by Pulse Oximetry 93 08/21/18 10:21 Oxygen Delivery Oxygen Delivery Room Air - Imaging and Cardiology Chest Xray: report reviewed Stress Test: report reviewed Echo: report reviewed - EKG Interpretation EKG results cardiology: personally reviewed (ECG with keven, HR 96.), other (Telemetry reviewed with average HR previous 12 hours noted to be 85, a.flutter. ) Consult Discharge Plan - Plan Referrals: Ruba Wilkins, DIP UNIT OPERATOR [Advanced Practice Nurse] - 08/28/18 8:30 am Mkie Figueroa MD [Partnered Physician] - 09/19/18 10:15 am <Mike Figueroa - Last Filed: 08/23/18 12:39> Date of Encounter: 08/23/18 - Attending Attestation I have personally performed a face to face evaluation on this patient. I have reviewed and agree with the care plan. History and Exam by me shows: Recurrent AF on flecainide. Would likely benefit from switch to alternate antiarrythmic like sotalol. Assessment and Plan Discussion w patient/family: The assessment and plan as outlined above was discussed with the patient and/or family members who expressed understanding and agreement. All questions were answered. Thank you for involving us in the care of your patient. Please call with any questions. History of Present Illness History of present illness: Mr. Royal is a 73 year old male All Systems Review: The remainder of the systems were reviewed and are negative Physical Examination Vital Signs, Last 4 Hours Pulse Resp BP Pulse Ox 08/23/18 10:27 77 18 145/109 97 Results 08/23/18 03:22 08/23/18 03:22 Lab Results 08/23/18 08/23/18 03:22 03:22 WBC 8.9 Hgb 13.9 Hct 40.4 Plt Count 244 Sodium 138 Potassium 3.9 Chloride 107 Carbon Dioxide 26 BUN 13 Creatinine 0.94 Glucose 142 H Calcium 8.8 Magnesium 2.0
[2018-08-21] MEDS ORDERED: Dextrose Gel 15 GM/37.5 ML TUBE PO PRN ×2 (15:09)
[2018-08-21] MEDS ORDERED: *HR* Dextrose 50 % in Water (Syg) 50 ML SYRINGE IVP PRN (15:09)
[2018-08-21] MEDS ORDERED: D5% in Water 1,000 ML IVC PRN (15:09)
[2018-08-21] MEDS ORDERED: Insulin LISPRO 300 UNITS/3 ML VIAL SQ SCH ×2 (16:30→21:00)
[2018-08-21] MEDS: Loratadine 10 MG TABLET PO SCH (17:34)
[2018-08-21] MEDS: Lisinopril 20 MG TABLET PO SCH (17:34)
[2018-08-21] MEDS: Multivit/Ca/Min/Fe/FA 1 TAB TABLET PO SCH (17:34)
[2018-08-21] MEDS: *HR* Rivaroxaban 10 MG TABLET PO SCH (17:34)
[2018-08-21] MEDS: Aspirin Enteric Coated 81 MG Tablet PO SCH (17:37)
[2018-08-21] MEDS: Fluticasone Propionate Nasal 50 MCG/SPRAY BOTTLE NS SCH (17:38)
[2018-08-21] MEDS: Sennosides/Docusate Sodium TABLET PO SCH (22:31)
[2018-08-22 04:46] LABS: Basophils # 0.1 K/mcL (0.0-0.2); Basophils % 1.1 %; Eosinophils # 0.3 K/mcL (0.0-0.6); Eosinophils % 3.2 %; Hematocrit 41.7 % (37.5-50.1); Hemoglobin 14.2 g/dL (12.9-16.9); Immature Granulocytes % 0.6 % (0-4); Lymphocytes % 37.3 %; Mean Corpuscular HGB Conc 34.1 g/dL (31.6-35.5); Mean Corpuscular Hemoglobin 30.9 pg (28.0-33.3); Mean Corpuscular Volume 90.7 fL (83.0-100.0); Mean Platelet Volume 10.6 fL (9.4-12.4); Monocytes # 0.7 K/mcL (0.0-1.3); Monocytes % 8.9 %; Platelet Count 259 K/mcL (140-400); Red Cell Distribution Width 13.3 % (11.5-14.5); Segmented Neutrophils % 48.9 %
[2018-08-22 05:00] LABS: BUN/Creatinine Ratio 16 (6-26); Blood Urea Nitrogen 16 mg/dL (8-23); Calcium 8.9 mg/dL (8.6-10.3); Carbon Dioxide 23 mEq/L (23-29); Chloride 110 mEq/L (98-107); Glucose 119 mg/dL (70-105); Osmolality,Calculated 294 (280-300); Phosphorous 3.6 mg/dL (2.7-4.5); Sodium 141 mEq/L (136-145); eGFR For Non-African Americans > 60 (> 60)
--- NOTE | 2018-08-22 09:09 | Internal Med Progress Note ---
Hospitalist Progress Note - Encounter Date of Encounter: 08/22/18 Time of Encounter: 09:00 - Exam Vitals: Temp Pulse Resp BP Pulse Ox 98.3 F 74 16 139/87 92 08/22/18 07:43 08/22/18 07:43 08/22/18 07:43 08/22/18 07:43 08/22/18 07:43 Exam: Constitutional: Vitals as noted. Conversant. No Apparent Distress. Well groomed. Obese. No obvious deformities. Eyes exam: Sclera white, conjunctiva clear, no lid lag, PEARLA. ENT exam: Grossly normal hearing. Nasophargeal and Oropharyngeal exam unremarkable. Moist mucus membranes. No JVD, carotid bruit, no cervical lymphadenopathy. no thyromegaly or mass. Respiratory exam: Clear to auscultation bilaterally. No accessory muscle use, rales, rhonchi or wheezes Cardiovascular exam: Irregular heart rate, +S1, +S2. no murmur, gallop, rubs. No chest wall tenderness GI/Abdominal exam: Soft, Non-tender, Non-distended, normal bowel sounds, soft, no peritoneal signs. no orgenomegaly or mass appreciated. no hernia. Musculoskeletal exam: full ROM, no atrophy or deformity noted. no edema or cyanosis, warm, pulses palpable and symmetrical in UE/LE. no calf tenderness. Neurological exam: AO X3, CN II-XII grossly intact, grossly normal motor and sensory exam. Normal muscle tone and reflexes. no focal deficits. no pronater drift, facial droop, speech deficit. Skin exam: No skin rash, lesions or ulcers noted. no purpura or ecchymosis. - Assessment and Plan (1) Atrial fibrillation Current Visit: Yes Status: Acute Assessment and Plan: Pt came in with palpitations and afib with RVR. Cardiology following. Had a workup for ischemia due to persistent afib. Had a nuclear stress test done which came back negative Cardiology plan to start sotalol and monitor patient in step down unit atrial flutter/persistent a fib. Continue xarelto for anticoagulation (2) Prediabetes Current Visit: No Status: Acute Assessment and Plan: Pt's A1c is 5.7. No indication for hypoglycemics (3) Obstructive sleep apnea Current Visit: Yes Status: Chronic Assessment and Plan: Cotninue CPAP (4) GERD (gastroesophageal reflux disease) Current Visit: Yes Status: Acute Assessment and Plan: - Continue home omeprazole (5) DVT prophylaxis Current Visit: Yes Status: Acute Assessment and Plan: - Low risk, ambulatory and on anticoagulation - Time Spent with Patient Total time spent is greater than 50% in coordination of care (as documented) at patient's floor/unit and/or counseling patient: Internal Medicine: Result - Labs CBC & Chem 7: 08/22/18 04:23 08/22/18 04:23 Labs: Short CBC 08/22/18 Range/Units 04:23 WBC 8.1 (4.3-11.1) K/mcL Hgb 14.2 (12.9-16.9) g/dL Hct 41.7 (37.5-50.1) % Plt Count 259 (140-400) K/mcL Neutrophils # 4.0 (1.6-8.9) K/mcL BMP 08/22/18 04:23 Sodium 141 Potassium 4.0 Chloride 110 H Carbon Dioxide 23 BUN 16 Creatinine 1.00 Glucose 119 H Calcium 8.9 - ABG Interpretation ABG results: PT/INR, D-dimer PT 11.6 Seconds (9.4-12.1) 08/20/18 07:55 - VTE Reasons for not Prescribing Prophylaxis: Treatment not Indicated - Low risk for VTE Consult Discharge Plan - Plan Referrals: Trenton Schneider MD [Primary Care Provider] - (1) Atrial fibrillation Qualifiers: Atrial fibrillation type: persistent Qualified Code(s): I48.1 - Persistent atrial fibrillation
[2018-08-22] MEDS: Cholecalciferol (D-3) 1,000 UNIT TABLET PO SCH (09:41)
[2018-08-22] MEDS: Sennosides/Docusate Sodium TABLET PO SCH ×2 (09:41→22:31)
--- NOTE | 2018-08-22 12:05 | Electrophysiology ProgressNote ---
Date of Encounter: 08/22/18 Time of Encounter: 09:00 Assessment and Plan (1) Atrial flutter Current Visit: Yes Status: Chronic Per EP: -Known paroxysmal atrial fibrillation/flutter. -On flecanide, recent admission last week after missed doses. Was cardioverted and discharged. Last dose of flecanide 08/20/18 0600. -Since last admission, denies missed doses of flecanide, however is now back in atrial flutter. -HR controlled, average HR 85, previous 12 hours. Currently on BB. -Stress test today negative for ischemia or infarct. -Recent MISSY with Left Ventricle * Normal size and function. Right Ventricle * The right ventricle was normal in size and systolic function. Left Atrium * Severely dilated. * No thrombus present. -ON xarelto for anticoagulation, denies missed doses since discharge. -ECG 08/20/18 0843 with a.flutter, HR 96. QRS 102ms, QT 383, QTc 484ms. ECG reviewed with Dr.John Figueroa, ok to proceed with sotalol initiation. -Discussed and reviewed with Dr.John Figueroa, recommend starting sotalol 80mg [id number]. Will need to be inpatient for 5 total doses. -Will transfer to second floor, hospitalist updated. -Will check daily ECGs. -Continue telemetry. -Continue xarelto. -Will continue to monitor. Qualifiers: Atrial flutter type: unspecified Qualified Code(s): I48.92 - Unspecified atrial flutter (2) Encounter for monitoring anti-arrhythmic therapy Current Visit: Yes Status: Acute Per EP: -Previously on flecanide. -As above, will start sotalol. Discussion w patient/family: The assessment and plan as outlined above was discussed with the patient and who expressed understanding and agreement. All questions were answered. Thank you for involving us in the care of your patient. Please call with any questions. Discussed and reviewed with Dr.John Figueroa. Subjective Principal diagnosis: a.flutter Interval history: Patient sitting in bed, complains of fatigue. Objective Vital Signs, Last 4 Hours Temp Pulse Resp BP Pulse Ox 08/22/18 10:42 97.9 F 93 17 112/70 95 General: Conversant, No Apparent Distress HEENT: Atraumatic, Normocephaly, Mucus Membranes Moist Neck: No JVD, Normal carotid pulses Cardiac: Normal S1 and S2, No Murmur, Other (Regularly irregular) Lungs: Normal Breath Sounds, No Wheeze, Rales, Rhonchi Neuro: Alert and responsive, No focal deficits noted Abdomen: Soft, Non-Tender Skin: No rashes noted on visualized skin Musculoskeletal: No Chest Wall Tenderness Extremities: No Clubbing, No Cyanosis, No Edema, Normal Pulses Results 08/22/18 04:23 08/22/18 04:23 Lab Results Active Medications Aspirin (Aspirin Ec) 81 mg PO QPM [facility] Stop: 02/19/19 18:01 Last Admin: 08/21/18 17:37 Dose: 81 mg Calcium Carbonate (Tums) 500 mg PO QPM [facility] Stop: 02/19/19 18:01 Last Admin: 08/21/18 17:34 Dose: 500 mg Dextrose/Water (Dextrose 50% (Syg)) 25 ml IVP AD PRN PRN Reason: Hypoglycemia Stop: 02/20/19 15:10 Fluticasone Propionate (Flonase) 50 mcg NS QPM [facility] PRN Reason: Protocol Stop: 02/19/19 18:01 Last Admin: 08/21/18 17:38 Dose: 50 mcg Glucagon (Glucagen) 1 mg IM ONCE PRN PRN Reason: Hypoglycemia Stop: 02/20/19 15:10 Glucose (Gluctose) 15 gm PO ONCE PRN PRN Reason: Hypoglycemia Stop: 02/20/19 15:10 Glucose (Gluctose) 30 gm PO ONCE PRN PRN Reason: Hypoglycemia Stop: 02/20/19 15:10 Dextrose (Dextrose 5%) 1,000 mls @ 100 mls/hr IVC .Q10H PRN PRN Reason: HYPOGLYCEMIA Stop: 02/20/19 15:10 Insulin Human Lispro (Humalog) 0 units SQ HS [facility] PRN Reason: Protocol Stop: 02/20/19 21:01 Last Admin: 08/21/18 20:41 Dose: Not Given Lisinopril (Zestril) 20 mg PO QPM [facility] Stop: 02/19/19 18:01 Last Admin: 08/21/18 17:34 Dose: 20 mg Loratadine (Claritin) 10 mg PO QPM [facility] Stop: 02/19/19 18:01 Last Admin: 08/21/18 17:34 Dose: 10 mg Metoprolol Tartrate (Lopressor) 25 mg PO BID [facility] Stop: 02/19/19 13:46 Last Admin: 08/22/18 09:41 Dose: 25 mg Multivitamins/Calcium (Thera M Plus) 1 tab PO QPM [facility] Stop: 02/19/19 18:01 Last Admin: 08/21/18 17:34 Dose: 1 tab Omeprazole (Prilosec) 20 mg PO QPM [facility] PRN Reason: Protocol Stop: 02/19/19 18:01 Last Admin: 08/21/18 17:34 Dose: 20 mg Rivaroxaban (Xarelto) 20 mg PO 1700 [facility] Stop: 02/19/19 17:01 Last Admin: 08/21/18 17:34 Dose: 20 mg Senna/Docusate Sodium (Senna Plus) 1 each PO BID [facility] PRN Reason: Protocol Stop: 02/20/19 21:01 Last Admin: 08/22/18 09:41 Dose: 1 each Tamsulosin HCl (Flomax) 0.4 mg PO QPM [facility] PRN Reason: Protocol Stop: 02/19/19 18:01 Last Admin: 08/21/18 17:34 Dose: 0.4 mg Vitamin D (Vitamin D) 1,000 unit PO DAILY [facility] Stop: 02/20/19 09:01 Last Admin: 08/22/18 09:41 Dose: 1,000 unit Laboratory Tests 08/20/18 08/22/18 08/22/18 07:55 04:23 04:23 Hgb 14.2 Potassium 4.0 Creatinine 1.00 Magnesium 2.0 Troponin I < 0.03 TSH 1.785 - Imaging and Cardiology Chest Xray: report reviewed Stress Test: report reviewed Echo: report reviewed - EKG Interpretation EKG results cardiology: other (Telemetry reviewed with average HR previous 12 hours noted to be 85, a.flutter. PVCs noted.) - VTE Reasons for not Prescribing Prophylaxis: Treatment not Indicated - Low risk for VTE Consult Discharge Plan - Plan Referrals: Trenton Schneider MD [Primary Care Provider] -
[2018-08-22] MEDS: *HR* Rivaroxaban 10 MG TABLET PO SCH (18:02)
[2018-08-22] MEDS: Aspirin Enteric Coated 81 MG Tablet PO SCH (18:02)
[2018-08-22] MEDS: Multivit/Ca/Min/Fe/FA 1 TAB TABLET PO SCH (18:02)
[2018-08-22] MEDS: Fluticasone Propionate Nasal 50 MCG/SPRAY BOTTLE NS SCH (18:03)
[2018-08-22] MEDS: Loratadine 10 MG TABLET PO SCH (18:03)
[2018-08-22] MEDS: Lisinopril 20 MG TABLET PO SCH (18:03)
[2018-08-23 03:38] LABS: Basophils # 0.1 K/mcL (0.0-0.2); Eosinophils # 0.3 K/mcL (0.0-0.6); Eosinophils % 3.1 %; Hematocrit 40.4 % (37.5-50.1); Hemoglobin 13.9 g/dL (12.9-16.9); Immature Granulocytes % 0.3 % (0-4); Lymphocytes # 3.4 K/mcL (0.6-4.6); Lymphocytes % 38.1 %; Mean Corpuscular HGB Conc 34.4 g/dL (31.6-35.5); Mean Corpuscular Hemoglobin 30.8 pg (28.0-33.3); Mean Corpuscular Volume 89.6 fL (83.0-100.0); Mean Platelet Volume 10.4 fL (9.4-12.4); Monocytes # 0.8 K/mcL (0.0-1.3); Monocytes % 8.9 %; Neutrophils # 4.3 K/mcL (1.6-8.9); Platelet Count 244 K/mcL (140-400); Red Blood Count 4.51 M/mcL (4.19-5.50); Red Cell Distribution Width 13.4 % (11.5-14.5); Segmented Neutrophils % 48.6 %
[2018-08-23 03:56] LABS: BUN/Creatinine Ratio 14 (6-26); Blood Urea Nitrogen 13 mg/dL (8-23); Calcium 8.8 mg/dL (8.6-10.3); Carbon Dioxide 26 mEq/L (23-29); Chloride 107 mEq/L (98-107); Glucose 142 mg/dL (70-105); Osmolality,Calculated 289 (280-300); Phosphorous 3.5 mg/dL (2.7-4.5); Potassium 3.9 mEq/L (3.5-5.1); Sodium 138 mEq/L (136-145); eGFR For Non-African Americans > 60 (> 60)
--- NOTE | 2018-08-23 07:21 | Internal Med Progress Note ---
Hospitalist Progress Note - Encounter Date of Encounter: 08/23/18 Time of Encounter: 07:15 - Exam Vitals: Temp Pulse Resp BP Pulse Ox 97.4 F L 86 18 144/94 96 08/23/18 04:05 08/23/18 06:44 08/23/18 06:44 08/23/18 06:44 08/23/18 06:44 Exam: Constitutional: Vitals as noted. Conversant. No Apparent Distress. Well groomed. Obese. No obvious deformities. Eyes exam: Sclera white, conjunctiva clear, no lid lag, PEARLA. ENT exam: Grossly normal hearing. Nasophargeal and Oropharyngeal exam unremarkable. Moist mucus membranes. No JVD, carotid bruit, no cervical lymphadenopathy. no thyromegaly or mass. Respiratory exam: Clear to auscultation bilaterally. No accessory muscle use, rales, rhonchi or wheezes Cardiovascular exam: Irregular heart rate, +S1, +S2. no murmur, gallop, rubs. No chest wall tenderness GI/Abdominal exam: Soft, Non-tender, Non-distended, normal bowel sounds, soft, no peritoneal signs. no orgenomegaly or mass appreciated. no hernia. Musculoskeletal exam: full ROM, no atrophy or deformity noted. no edema or cyanosis, warm, pulses palpable and symmetrical in UE/LE. no calf tenderness. Neurological exam: AO X3, CN II-XII grossly intact, grossly normal motor and sensory exam. Normal muscle tone and reflexes. no focal deficits. no pronater drift, facial droop, speech deficit. Skin exam: No skin rash, lesions or ulcers noted. no purpura or ecchymosis. - Assessment and Plan (1) Atrial fibrillation Current Visit: Yes Status: Acute Assessment and Plan: Pt came in with palpitations and afib with RVR. Cardiology following. Had a workup for ischemia due to persistent afib. Had a nuclear stress test done which came back negative Cardiology plan to start sotalol and monitor patient in step down unit atrial flutter/persistent a fib. Continue xarelto for anticoagulation 08/23. Started on sotalol. Monitor with daily ECGS. Possible DCCV in am. Cardiology following. NPO from midnight (2) Prediabetes Current Visit: No Status: Acute Assessment and Plan: Pt's A1c is 5.7. No indication for hypoglycemics (3) Obstructive sleep apnea Current Visit: Yes Status: Chronic Assessment and Plan: Cotninue CPAP (4) GERD (gastroesophageal reflux disease) Current Visit: Yes Status: Acute Assessment and Plan: - Continue home omeprazole (5) DVT prophylaxis Current Visit: Yes Status: Acute Assessment and Plan: - Low risk, ambulatory and on anticoagulation - Time Spent with Patient Total time spent is greater than 50% in coordination of care (as documented) at patient's floor/unit and/or counseling patient: Internal Medicine: Result - Labs CBC & Chem 7: 08/23/18 03:22 08/23/18 03:22 Labs: Short CBC 08/23/18 Range/Units 03:22 WBC 8.9 (4.3-11.1) K/mcL Hgb 13.9 (12.9-16.9) g/dL Hct 40.4 (37.5-50.1) % Plt Count 244 (140-400) K/mcL Neutrophils # 4.3 (1.6-8.9) K/mcL BMP 08/23/18 03:22 Sodium 138 Potassium 3.9 Chloride 107 Carbon Dioxide 26 BUN 13 Creatinine 0.94 Glucose 142 H Calcium 8.8 - ABG Interpretation ABG results: PT/INR, D-dimer PT 11.6 Seconds (9.4-12.1) 08/20/18 07:55 - VTE Reasons for not Prescribing Prophylaxis: Treatment not Indicated - Low risk for VTE Consult Discharge Plan - Plan Referrals: Ruba Wilkins CNP [Advanced Practice Nurse] - 08/28/18 8:30 am Mike Figueroa MD [Partnered Physician] - 09/19/18 10:15 am (1) Atrial fibrillation Qualifiers: Atrial fibrillation type: persistent Qualified Code(s): I48.1 - Persistent atrial fibrillation
[2018-08-23] MEDS: Cholecalciferol (D-3) 1,000 UNIT TABLET PO SCH (09:02)
[2018-08-23] MEDS: Sennosides/Docusate Sodium TABLET PO SCH ×2 (09:03→20:12)
--- NOTE | 2018-08-23 10:58 | Electrophysiology ProgressNote ---
Date of Encounter: 08/23/18 Time of Encounter: 08:30 Assessment and Plan (1) Atrial flutter Current Visit: Yes Status: Chronic Per EP: -Known paroxysmal atrial fibrillation/flutter. -On flecanide, recent admission last week after missed doses. Was cardioverted and discharged. Last dose of flecanide 08/20/18 0600. -Since last admission, denies missed doses of flecanide, however is now back in atrial flutter. -Patient was started on sotalol 80mg BID, s/p 2 total doses. -Recent MISSY with Left Ventricle * Normal size and function. Right Ventricle * The right ventricle was normal in size and systolic function. Left Atrium * Severely dilated. * No thrombus present. -ON xarelto for anticoagulation, denies missed doses since recent MISSY/DCCV. -ECG 08/20/18 0843 with a.flutter, HR 96. QRS 102ms, QT 383, QTc 484ms. ECG reviewed with massimo Man to proceed with sotalol initiation. -ECG 08/23/18 with a.flutter, HR 76. QT 378, QTc 408ms. -Discussed and reviewed with massimo Man to continue sotalol. -ECG in am. -Will make NPO after midnight for possible DCCV in am. -Will continue to monitor. -OF note, will need to be inpatient for 6 total doses. Qualifiers: Atrial flutter type: unspecified Qualified Code(s): I48.92 - Unspecified atrial flutter (2) Encounter for monitoring anti-arrhythmic therapy Current Visit: Yes Status: Acute Per EP: -Previously on flecanide. -As above, now on sotalol. Discussion w patient/family: The assessment and plan as outlined above was discussed with the patient who expressed understanding and agreement. All questions were answered. Thank you for involving us in the care of your patient. Please call with any questions. Discussed and reviewed with Dr.John Figueroa. Subjective Principal diagnosis: a.flutter Interval history: Patient sitting in chair. Reports he feels tired today. Objective Vital Signs, Last 4 Hours Pulse Resp BP Pulse Ox 08/23/18 10:27 77 18 145/109 97 General: Conversant, No Apparent Distress HEENT: Atraumatic, Normocephaly, Mucus Membranes Moist Neck: No JVD, Normal carotid pulses Cardiac: Normal S1 and S2, No Murmur, Other (Regularly irregular) Lungs: Normal Breath Sounds, No Wheeze, Rales, Rhonchi Neuro: Alert and responsive, No focal deficits noted Abdomen: Soft, Non-Tender Skin: No rashes noted on visualized skin Musculoskeletal: No Chest Wall Tenderness Extremities: No Clubbing, No Cyanosis, No Edema, Normal Pulses Results 08/23/18 03:22 08/23/18 03:22 Lab Results Impressions Chest X-Ray 08/20/18 07:31 IMPRESSION: No acute cardiopulmonary process. D/ / 08/20/2018 08:15:03 Tete Parker MD / lexus Interpreting Provider: Tete Parker MD Active Medications Aspirin (Aspirin Ec) 81 mg PO QPM [facility] Stop: 02/19/19 18:01 Last Admin: 08/22/18 18:02 Dose: 81 mg Calcium Carbonate (Tums) 500 mg PO QPM [facility] Stop: 02/19/19 18:01 Last Admin: 08/22/18 18:02 Dose: 500 mg Fluticasone Propionate (Flonase) 50 mcg NS QPM [facility] PRN Reason: Protocol Stop: 02/19/19 18:01 Last Admin: 08/22/18 18:03 Dose: Not Given Lisinopril (Zestril) 20 mg PO QPM [facility] Stop: 02/19/19 18:01 Last Admin: 08/22/18 18:03 Dose: 20 mg Loratadine (Claritin) 10 mg PO QPM [facility] Stop: 02/19/19 18:01 Last Admin: 08/22/18 18:03 Dose: 10 mg Metoprolol Tartrate (Lopressor) 25 mg PO BID [facility] Stop: 02/19/19 13:46 Last Admin: 08/23/18 09:02 Dose: 25 mg Multivitamins/Calcium (Thera M Plus) 1 tab PO QPM [facility] Stop: 02/19/19 18:01 Last Admin: 08/22/18 18:02 Dose: 1 tab Omeprazole (Prilosec) 20 mg PO QPM [facility] PRN Reason: Protocol Stop: 02/19/19 18:01 Last Admin: 08/22/18 18:03 Dose: 20 mg Rivaroxaban (Xarelto) 20 mg PO 1700 [facility] Stop: 02/19/19 17:01 Last Admin: 08/22/18 18:02 Dose: 20 mg Senna/Docusate Sodium (Senna Plus) 1 each PO BID [facility] PRN Reason: Protocol Stop: 02/20/19 21:01 Last Admin: 08/23/18 09:03 Dose: Not Given Sotalol HCl (Betapace) 80 mg PO Q12H [facility] Stop: 02/22/19 06:01 Last Admin: 08/23/18 06:07 Dose: 80 mg Tamsulosin HCl (Flomax) 0.4 mg PO QPM [facility] PRN Reason: Protocol Stop: 02/19/19 18:01 Last Admin: 08/22/18 18:03 Dose: 0.4 mg Vitamin D (Vitamin D) 1,000 unit PO DAILY [facility] Stop: 02/20/19 09:01 Last Admin: 08/23/18 09:02 Dose: 1,000 unit Laboratory Tests 08/20/18 08/22/18 08/23/18 07:55 04:23 03:22 Hgb 13.9 Potassium Creatinine 1.00 Magnesium Troponin I < 0.03 TSH 1.785 08/23/18 03:22 Hgb Potassium 3.9 Creatinine 0.94 Magnesium 2.0 Troponin I TSH - Imaging and Cardiology Chest Xray: report reviewed Stress Test: report reviewed Echo: report reviewed - EKG Interpretation EKG results cardiology: personally reviewed (ECG today with a.flutter, HR 76. QT 378, QTc 408ms.), other (Telemetry reviewed with average HR previous 12 hours noted to be 82, a.flutter. PVCs noted.) - VTE Reasons for not Prescribing Prophylaxis: Treatment not Indicated - Low risk for VTE Consult Discharge Plan - Plan Referrals: Ruba Wilkins CNP [Advanced Practice Nurse] - 08/28/18 8:30 am Mike Figueroa MD [Partnered Physician] - 09/19/18 10:15 am
[2018-08-23] MEDS: Lisinopril 20 MG TABLET PO SCH (17:38)
[2018-08-23] MEDS: Loratadine 10 MG TABLET PO SCH (17:38)
[2018-08-23] MEDS: *HR* Rivaroxaban 10 MG TABLET PO SCH (17:38)
[2018-08-23] MEDS: Multivit/Ca/Min/Fe/FA 1 TAB TABLET PO SCH (17:38)
[2018-08-23] MEDS: Aspirin Enteric Coated 81 MG Tablet PO SCH (17:38)
[2018-08-23] MEDS: Fluticasone Propionate Nasal 50 MCG/SPRAY BOTTLE NS SCH (19:14)
[2018-08-23] MEDS ORDERED: Acetaminophen 325 MG TABLET PO PRN (19:34)
[2018-08-24 04:18] LABS: Basophils # 0.1 K/mcL (0.0-0.2); Basophils % 0.9 %; Eosinophils # 0.3 K/mcL (0.0-0.6); Eosinophils % 3.4 %; Hematocrit 43.5 % (37.5-50.1); Hemoglobin 14.5 g/dL (12.9-16.9); Immature Granulocytes % 0.2 % (0-4); Lymphocytes # 3.1 K/mcL (0.6-4.6); Lymphocytes % 37.4 %; Mean Corpuscular HGB Conc 33.3 g/dL (31.6-35.5); Mean Corpuscular Hemoglobin 30.3 pg (28.0-33.3); Mean Corpuscular Volume 90.8 fL (83.0-100.0); Mean Platelet Volume 10.9 fL (9.4-12.4); Monocytes # 0.7 K/mcL (0.0-1.3); Platelet Count 260 K/mcL (140-400); Red Blood Count 4.79 M/mcL (4.19-5.50); Red Cell Distribution Width 13.2 % (11.5-14.5); Segmented Neutrophils % 49.1 %
[2018-08-24 04:40] LABS: BUN/Creatinine Ratio 13 (6-26); Blood Urea Nitrogen 13 mg/dL (8-23); Calcium 9.2 mg/dL (8.6-10.3); Carbon Dioxide 25 mEq/L (23-29); Chloride 106 mEq/L (98-107); Glucose 132 mg/dL (70-105); Osmolality,Calculated 288 (280-300); Phosphorous 4.3 mg/dL (2.7-4.5); Sodium 138 mEq/L (136-145); eGFR For Non-African Americans > 60 (> 60)
--- NOTE | 2018-08-24 07:20 | Internal Med Progress Note ---
Hospitalist Progress Note - Encounter Date of Encounter: 08/24/18 Time of Encounter: 07:30 - Subjective Interval History: No acute events overnight - Exam Vitals: Temp Pulse Resp BP Pulse Ox 97.7 F 65 15 112/76 97 08/24/18 06:41 08/24/18 06:41 08/24/18 06:41 08/24/18 06:41 08/24/18 06:41 Exam: Constitutional: Vitals as noted. Conversant. No Apparent Distress. Well groomed. Obese. No obvious deformities. Eyes exam: Sclera white, conjunctiva clear, no lid lag, PEARLA. ENT exam: Grossly normal hearing. Nasophargeal and Oropharyngeal exam unremarkable. Moist mucus membranes. No JVD, carotid bruit, no cervical lymphadenopathy. no thyromegaly or mass. Respiratory exam: Clear to auscultation bilaterally. No accessory muscle use, rales, rhonchi or wheezes Cardiovascular exam: Irregular heart rate, +S1, +S2. no murmur, gallop, rubs. No chest wall tenderness GI/Abdominal exam: Soft, Non-tender, Non-distended, normal bowel sounds, soft, no peritoneal signs. no orgenomegaly or mass appreciated. no hernia. Musculoskeletal exam: full ROM, no atrophy or deformity noted. no edema or cyanosis, warm, pulses palpable and symmetrical in UE/LE. no calf tenderness. Neurological exam: AO X3, CN II-XII grossly intact, grossly normal motor and sensory exam. Normal muscle tone and reflexes. no focal deficits. no pronater drift, facial droop, speech deficit. Skin exam: No skin rash, lesions or ulcers noted. no purpura or ecchymosis. - Assessment and Plan (1) Atrial fibrillation Current Visit: Yes Status: Acute Assessment and Plan: Pt came in with palpitations and afib with RVR. Cardiology following. Had a workup for ischemia due to persistent afib. Had a nuclear stress test done which came back negative Cardiology plan to start sotalol and monitor patient in step down unit atrial flutter/persistent a fib. Continue xarelto for anticoagulation 08/24. Started on sotalol on 08/22. Monitor with daily ECGS. Possible DCCV today (2) Prediabetes Current Visit: No Status: Acute Assessment and Plan: Pt's A1c is 5.7. No indication for hypoglycemics (3) Obstructive sleep apnea Current Visit: Yes Status: Chronic Assessment and Plan: Cotninue CPAP (4) GERD (gastroesophageal reflux disease) Current Visit: Yes Status: Acute Assessment and Plan: - Continue home omeprazole (5) DVT prophylaxis Current Visit: Yes Status: Acute Assessment and Plan: - Low risk, ambulatory and on anticoagulation - Time Spent with Patient Total time spent is greater than 50% in coordination of care (as documented) at patient's floor/unit and/or counseling patient: Internal Medicine: Result - Labs CBC & Chem 7: 08/24/18 03:36 08/24/18 03:36 Labs: Short CBC 08/24/18 Range/Units 03:36 WBC 8.2 (4.3-11.1) K/mcL Hgb 14.5 (12.9-16.9) g/dL Hct 43.5 (37.5-50.1) % Plt Count 260 (140-400) K/mcL Neutrophils # 4.0 (1.6-8.9) K/mcL BMP 08/24/18 03:36 Sodium 138 Potassium 4.0 Chloride 106 Carbon Dioxide 25 BUN 13 Creatinine 0.99 Glucose 132 H Calcium 9.2 - ABG Interpretation ABG results: PT/INR, D-dimer PT 11.6 Seconds (9.4-12.1) 08/20/18 07:55 - VTE Reasons for not Prescribing Prophylaxis: Treatment not Indicated - Low risk for VTE Consult Discharge Plan - Plan Referrals: Ruba Wilkins CNP [Advanced Practice Nurse] - 08/28/18 8:30 am Mike Figueroa MD [Partnered Physician] - 09/19/18 10:15 am (1) Atrial fibrillation Qualifiers: Atrial fibrillation type: persistent Qualified Code(s): I48.1 - Persistent atrial fibrillation
[2018-08-24] MEDS: Sennosides/Docusate Sodium TABLET PO SCH (07:31)
[2018-08-24] MEDS: Cholecalciferol (D-3) 1,000 UNIT TABLET PO SCH (08:25)
--- NOTE | 2018-08-24 10:24 | Event Note ---
Date of Encounter: 08/24/18 Time of Encounter: 09:30 - Cardiology Event Note ECG today with a.flutter, HR 73. QT 386, QTc 412ms, s/p 4 total doses of sotalol. Plan for DCCV today. Patient with recent MISSY/DCCV and has not missed xarelto since recent MISSY/DCCV. Risks versus benefits of DCCV explained to patient and family, state understanding and agree with plan. Discussed and reviewed with and Dr.John Figueroa. Further recommendations after DCCV.
[2018-08-24] MEDS ORDERED: 0.9 % Sodium Chloride 500 ML IVC ONE (10:50)
[2018-08-24] MEDS: *HR* Midazolam HCl 5 MG/5 ML VIAL IVP PRN ×2 (11:25→11:30)
[2018-08-24] MEDS: *HR* FentaNYL (PF) 100 MCG/2 ML VIAL IVP PRN ×2 (11:25→11:30)
--- NOTE | 2018-08-24 13:37 | Event Note ---
Date of Encounter: 08/24/18 Time of Encounter: 13:34 - Cardiology Event Note Patient is s/p successful DCCV. HR and BP currently stable. Continue sotalol 80mg BID and metoprolol 25mg BID. 5th dose of sotalol will be today at 1800. Recommend ECG 2 hours after 5th dose of sotalol. If QT/QTC less 500ms, ok for discharge. If QT/QTc greater than 500ms recommend paging vice president industrial relations deputy head. Medications sent into [facility] pharmacy.
[2018-08-24 16:22] VITALS: BP 114/60
--- NOTE | 2018-08-24 16:36 | Discharge Summary ---
Orders not resulted at time of discharge: Pending orders 08/24/18 20:00 ECG 12 lead ECG [ECG] Routine Date of Encounter: 08/25/18 Time of Encounter: 16:30 - Discharge Diagnosis (1) Atrial fibrillation Priority: Primary Status: Acute Assessment and Plan: 73 year old male with past medical history of hypertension, prediabetes, GERD, obstructive sleep apnea on CPAP and paroxysmal A. fib coming in complain of palpitations since last 2 days. Patient had a cardioversion last week for his A. fib. Patient has been on multiple tach and later on on flecainide with the intention to keep him in sinus rhythm. He has been taking his medication mostly irregularly however missed about 1-2 doses or past 1-2 weeks. He also has not been completely compliant is using CPAP for his sleep apnea over the past one week. He comes in with 2 day history of palpitation and tachycardia he which he measured was maximum of 128 He was assessed with palpitations and afib/ aflutter with RVR. He had a workup for ischemia due to persistent afib with a nuclear stress test done which came back negative. He was started on sotalol by cardiology and monitored in a step down unit for atrial flutter/persistent a fib. He was still noted to be in atrial flutter after starting sotalol and therefore underwent a direct cardioversion on 08/24 which converted him to sinus bradycardia with HR above 50. He was monitored closely and got sotalol after cardioversion. He was discharged per cardio recs once a follow up ECG showed a QTC less than 500ms. He will continue on sotalol and metoprolol and xarelto and follow up with cardiology Qualifiers: Atrial fibrillation type: persistent Qualified Code(s): I48.1 - Persistent atrial fibrillation (2) Prediabetes Priority: Primary Status: Acute (3) Obstructive sleep apnea Priority: Primary Status: Chronic (4) GERD (gastroesophageal reflux disease) Priority: Secondary Status: Acute Qualifiers: Qualified Code(s): K21.9 - Gastro-esophageal reflux disease without esophagitis (5) DVT prophylaxis Priority: Secondary Status: Acute Hospital course: Mr. Ryoal is a 73 year old male - Time Spent with Patient Total time spent providing and/or coordinating discharge services: - Discharge Medications Home Medications: Aspirin Enteric Coated [Aspirin EC] 81 mg PO QPM 08/13/18 [History] Atenolol [Tenormin] 50 mg PO QPM 08/13/18 [History] Calcium Carb, Citrate/Vit D3 [Calcium + D3 ER Tablet] 1 tab PO QPM 08/13/18 [ History] Cetirizine HCl [All Day Allergy] 10 mg PO QPM 08/13/18 [History] Fluticasone Propionate Nasal [Flonase] 1 spr NS QPM 08/13/18 [History] Lisinopril [Zestril] 40 mg PO QPM 08/13/18 [History] Multivitamin [One Daily Essential] 1 tab PO QPM 08/13/18 [History] NIFEdipine XL (24 HR) [Procardia XL] 30 mg PO DAILY 08/13/18 [History] Eunice-3/Dha/Epa/Fish Oil [Fish Oil 1,000 mg Softgel] 1 cap PO QPM 08/13/18 [ History] Omeprazole [PriLOSEC] 20 mg PO QPM 08/13/18 [History] Rivaroxaban [Xarelto] 20 mg PO QPM 08/13/18 [History] Tamsulosin HCl [Flomax] 0.4 mg PO QPM 08/13/18 [History] Metoprolol [Lopressor] 25 mg PO BID tablet 08/24/18 [Rx] Sotalol [Betapace] 80 mg PO Q12H tablet 08/24/18 [Rx] Allergies/Adverse Reactions: 3 Allergy/AdvReac Type Severity Reaction Status Date / Time lovastatin AdvReac Hives Verified 08/13/18 13:14 Date of admission: 08/23/18 14:12 Primary care physician: Trenton Schneider MD - Constitutional Vitals: Temp Pulse Resp BP Pulse Ox 97.6 F 69 15 114/60 95 08/24/18 16:00 08/24/18 16:00 08/24/18 16:00 08/24/18 16:00 08/24/18 16:00 General appearance: Present: A&O X 3, no acute distress Exam: Constitutional: Vitals as noted. Conversant. No Apparent Distress. Well groomed. Obese. No obvious deformities. Eyes exam: Sclera white, conjunctiva clear, no lid lag, PEARLA. ENT exam: Grossly normal hearing. Nasophargeal and Oropharyngeal exam unremarkable. Moist mucus membranes. No JVD, carotid bruit, no cervical lymphadenopathy. no thyromegaly or mass. Respiratory exam: Clear to auscultation bilaterally. No accessory muscle use, rales, rhonchi or wheezes Cardiovascular exam: Irregular heart rate, +S1, +S2. no murmur, gallop, rubs. No chest wall tenderness GI/Abdominal exam: Soft, Non-tender, Non-distended, normal bowel sounds, soft, no peritoneal signs. no orgenomegaly or mass appreciated. no hernia. Musculoskeletal exam: full ROM, no atrophy or deformity noted. no edema or cyanosis, warm, pulses palpable and symmetrical in UE/LE. no calf tenderness. Neurological exam: AO X3, CN II-XII grossly intact, grossly normal motor and sensory exam. Normal muscle tone and reflexes. no focal deficits. no pronater drift, facial droop, speech deficit. Skin exam: No skin rash, lesions or ulcers noted. no purpura or ecchymosis. - Patient Status Disposition: Home, Self-Care Condition: Fair - Discharge Instructions Instructions: Metoprolol (By mouth), Sotalol (By mouth), Atrial Flutter (DC), Atrial Fibrillation (DC), Cardioversion (DC) Follow Up With: Ruba Wilkins CNP [Advanced Practice Nurse] - 08/28/18 8:30 am Mike Figueroa MD [Partnered Physician] - 09/19/18 10:15 am Additional Instructions: Your Metoprolol and Sotalol prescriptions were electronically sent to [facility]. - VTE Reasons for not Prescribing Prophylaxis: Treatment not Indicated - Low risk for VTE
[2018-08-24] MEDS: Loratadine 10 MG TABLET PO SCH (17:50)
[2018-08-24] MEDS: Multivit/Ca/Min/Fe/FA 1 TAB TABLET PO SCH (17:50)
[2018-08-24] MEDS: *HR* Rivaroxaban 10 MG TABLET PO SCH (17:50)
[2018-08-24] MEDS: Lisinopril 20 MG TABLET PO SCH (17:50)
[2018-08-24] MEDS: Aspirin Enteric Coated 81 MG Tablet PO SCH (17:51)
[2018-08-24] MEDS: Fluticasone Propionate Nasal 50 MCG/SPRAY BOTTLE NS SCH (17:54)
--- NOTE | 2018-08-26 09:25 | Electrocardiograph Report ---
[place] [address] Test Date: 2018-08-22 Pat Name: Mike Royal Department: 115 Room: 2NE16 Gender: M Ui Engineer: : 1945 Requested By: Umu Mendoza Order Number: [id number] Reading MD: Kin Tavarez Measurements Intervals [place] Rate: 89 P: [place]: 0 QRS: -37 QRSD: 94 T: -69 QT: 366 QTc: 413 Interpretive Statements ATRIAL FIBRILLATION/FLUTTER MARKED LEFT AXIS DEVIATION NONSPECIFIC ST & T-WAVE ABNORMALITY Electronically Signed On 08-26-2018 9:23:34 EDT by Kin Tavarez
--- NOTE | 2018-08-26 21:02 | Electrocardiograph Report ---
[place] [address] Test Date: 2018-08-23 Pat Name: Mike Royal Department: 111 Room: 2NE16 Gender: M Evaluation Assistant: : 1945 Requested By: Umu Mendoza Order Number: [id number] Reading MD: Kin Tavarez Measurements Intervals [place] Rate: 76 P: [place]: 0 QRS: -41 QRSD: 88 T: -75 QT: 378 QTc: 408 Interpretive Statements ATRIAL FLUTTER/TACHYCARDIA MARKED LEFT AXIS DEVIATION NONSPECIFIC ST & T-WAVE ABNORMALITY Electronically Signed On 08-26-2018 21:01:08 EDT by Kin Tavarez
--- NOTE | 2018-08-26 21:54 | Electrocardiograph Report ---
[place] [address] Test Date: 2018-08-24 Pat Name: Mike Royal Department: 111 Room: 2NE16 Gender: M Client Specialist: : 1945 Requested By: Umu Mendoza Order Number: [id number] Reading MD: Kin Tavarez Measurements Intervals [place] Rate: 73 P: [place]: 0 QRS: -42 QRSD: 86 T: -65 QT: 386 QTc: 412 Interpretive Statements ATRIAL FIBRILLATION MARKED LEFT AXIS DEVIATION NONSPECIFIC ST & T-WAVE ABNORMALITY Electronically Signed On 08-26-2018 21:52:49 EDT by Kin Tavarez
--- NOTE | 2018-08-26 21:57 | Electrocardiograph Report ---
[address] [address] Test Date: 2018-08-24 Pat Name: Mike Royal Department: 111 Room: 2NE16 Gender: M Scheduler: [facility] : 1945 Requested By: Kin Tavarez Order Number: [id number] Reading MD: Kin Tavarez Measurements Intervals [place] Rate: 100 P: CT: 0 QRS: -37 QRSD: 80 T: -34 QT: 361 QTc: 418 Interpretive Statements ATRIAL FLUTTER/TACHYCARDIA WITH RAPID VENTRICULAR RESPONSE MARKED LEFT AXIS DEVIATION NONSPECIFIC ST & T-WAVE ABNORMALITY Electronically Signed On 08-26-2018 21:56:02 EDT by Kin Tavarez
--- NOTE | 2018-08-27 14:28 | Electrocardiograph Report ---
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
== END 2018-08-24 20:22 | disposition home or self-care (01) | DRG 310 ==
LOC: EMEROOARM 07:20 → 3ANU 07:20 → 2NENU 08-22 19:55
PROVIDERS: ADMIT Internal Medicine; ATTEND Internal Medicine

== ENCOUNTER 2018-08-29 13:27 | Inpatient (IN) ==
[2018-08-29] MEDS ORDERED: Naloxone 0.4 MG/ML INJ IVP PRN (14:59)
--- NOTE | 2018-08-29 15:15 | Electrophysiology H & P ---
<Clinton De La Cruz - Last Filed: 08/29/18 15:12> Date of Encounter: 08/29/18 Time of Encounter: 15:12 Assessment and Plan (1) PAF (paroxysmal atrial fibrillation) Status: Acute The assessment and plan as outlined above was discussed with the patient and/or family members who expressed understanding and agreement. All questions were answered. Pt called the office with c/o recurrent palpitations. Set up for direct admit for sotalol increase. We will obtain baseline EKG and increase to [address] Figueroa recommendations. He denies missed dose of xarelto in last 30 days. Continue metoprolol. History of Present Illness Chief complaint: palpitations some SOB since last monday HPI: Mr. Royal is a 73 year old male with past medical history significant for PAF, HTN, hyperglycemia, and LUZMARIA on c-pap. He presents as direct admit for sotalol therapy increase. Recently started on sotalol for recurrent afib and discharged 08/25/18. He underwent successful DCCV to NSR after his fourth dose. He developed recurrent afib after three days. Reports that he was recently on flecainide and did well for years. He failed multaq in the past. Prior testin08/21/18 stress test: Pharmacologic stress ECG is negative for ischemia at level of heart rate achieved. Gated EF = 52%. Myocardial perfusion imaging is normal. Overall, left ventricular systolic function was normal without regional wall motion abnormalities. ----- ECHO REPO RT 2010 Impression: Left Ventricle * LVEF 60-65 % * Normal size and function. * Normal LV thickness. Left Atrium * Mildly dilated STRESS TEST REPORT 2014 Impression: The exercise capacity was good. Patient exercised for 9:41 minutes on a Geovanny protocol, achieving 10 METs and 78% of max predicted heart rate. There were borderline ischemia ECG changes seen in the inferior lead at peak exercise / early recovery. Gated LVEF = 67%. Perfusion imaging was negative for ischemia or infarct. Please note that the sensitivity of this test for detecting ischemia is significantly decreased as the patient only reached 78% of max predicted heart rate and work load was relatively low (double product = 18,252. Past Med Surg Social Fam HX - Past Medical History Attestation: Yes The following information was validated with the patient. Medical history: atrial fibrillation, GERD, hypertension Additional medical history: sleep apnea Psychiatric history: no psych history - Past Surgical History Surgical History: cholecystectomy, orthopedic, other Additional surgical history: rotator cuff surgery - Social History Smoking Status: Former smoker Smokeless Tobacco Status: No Alcohol use: heavy Drug use: none - Family History Mother Living Status: Hx Family Cardiac Disorders: Yes (Pacer, bradycardia) Father Living Status: Hx Family Cancer: Yes (Lung) Medications and Allergies Aspirin Enteric Coated [Aspirin EC] 81 mg PO QPM 08/13/18 [History] Calcium Carb, Citrate/Vit D3 [Calcium + D3 ER Tablet] 1 tab PO QPM 08/13/18 [ History] Cetirizine HCl [All Day Allergy] 10 mg PO QPM 08/13/18 [History] Fluticasone Propionate Nasal [Flonase] 1 spr NS QPM 08/13/18 [History] Lisinopril [Zestril] 40 mg PO QPM 08/13/18 [History] Multivitamin [One Daily Essential] 1 tab PO QPM 08/13/18 [History] [place]-3/Dha/Epa/Fish Oil [Fish Oil 1,000 mg Softgel] 1 cap PO QPM 08/13/18 [ History] Omeprazole [PriLOSEC] 20 mg PO QPM 08/13/18 [History] Rivaroxaban [Xarelto] 20 mg PO QPM 08/13/18 [History] Tamsulosin HCl [Flomax] 0.4 mg PO QPM 08/13/18 [History] Metoprolol [Lopressor] 25 mg PO BID tablet 08/24/18 [Rx] Sotalol [Betapace] 80 mg PO Q12H tablet 08/24/18 [Rx] Metformin HCl [Metformin HCl ER] 500 mg PO DAILY 08/29/18 [History] 3 Allergy/AdvReac Type Severity Reaction Status Date / Time lovastatin AdvReac Hives Verified 08/13/18 13:14 All Systems Review: The remainder of the systems were reviewed and are negative Physical Examination General: Conversant, No Apparent Distress HEENT: Atraumatic, Normocephaly, Mucus Membranes Moist Neck: No JVD, Normal carotid pulses Cardiac: Other (Irregular) Lungs: Normal Breath Sounds, No Wheeze, Rales, Rhonchi Neuro: Alert and responsive, No focal deficits noted Abdomen: Soft, Non-Tender Skin: No rashes noted on visualized skin Musculoskeletal: No Chest Wall Tenderness Extremities: No Clubbing, No Cyanosis, No Edema, Normal Pulses Results - Imaging and Cardiology Echo: report reviewed - EKG Interpretation EKG results cardiology: personally reviewed - VTE Reasons for not Prescribing Prophylaxis: Not indicated-Anticoagulated or INR therapeutic <Mike Figueroa - Last Filed: 08/30/18 16:01> Date of Encounter: 08/30/18 - Attending Attestation I have personally performed a face to face evaluation on this patient. I have reviewed and agree with the care plan. History and Exam by me shows: Recurrent PAF on sotalol. Will titrate dose to 120 BID. History of Present Illness HPI: Mr. Royal is a 73 year old male All Systems Review: The remainder of the systems were reviewed and are negative Results 08/29/18 15:39 Lab Results 08/29/18 15:39 Sodium 140 Potassium 4.1 Chloride 109 H Carbon Dioxide 25 BUN 16 Creatinine 1.10 Glucose 117 H Calcium 9.5
[2018-08-29 16:38] LABS: BUN/Creatinine Ratio 15 (6-26); Blood Urea Nitrogen 16 mg/dL (8-23); Calcium 9.5 mg/dL (8.6-10.3); Carbon Dioxide 25 mEq/L (23-29); Chloride 109 mEq/L (98-107); Glucose 117 mg/dL (70-105); Osmolality,Calculated 292 (280-300); Potassium 4.1 mEq/L (3.5-5.1); Sodium 140 mEq/L (136-145); eGFR For Non-African Americans > 60 (> 60)
[2018-08-29] MEDS: *HR* Rivaroxaban 10 MG TABLET PO SCH (17:32)
[2018-08-29] MEDS: Loratadine 10 MG TABLET PO SCH (17:32)
[2018-08-29] MEDS: Aspirin Enteric Coated 81 MG Tablet PO SCH (17:32)
[2018-08-29] MEDS: (Omega-3/Dha/Epa/Fish Oil [Fish Oil 1,000 Mg Softgel] PO SCH (17:33)
[2018-08-29] MEDS: Multivit/Ca/Min/Fe/FA 1 TAB TABLET PO SCH (17:33)
[2018-08-29] MEDS: Cholecalciferol (D-3) 1,000 UNIT TABLET PO SCH (17:34)
[2018-08-29] MEDS ORDERED: VIT D3 PO SCH (18:00)
[2018-08-29] MEDS ORDERED: Lisinopril 20 MG TABLET PO SCH (18:00)
[2018-08-29] MEDS ORDERED: CALCIUM CARB CITRATE PO SCH (18:00)
[2018-08-29] MEDS ORDERED: [UNRECOGNIZED DRUG - OTHER] PO SCH (18:00)
[2018-08-29] MEDS ORDERED: NON-FORMULARY MEDICATION 1 EACH EACH (Lisinopril [Zestril] 40 MG) PO SCH (18:00)
[2018-08-29] MEDS: Fluticasone Propionate Nasal 50 MCG/SPRAY BOTTLE NS SCH (19:19)
[2018-08-29] MEDS: *HR* Metformin 500 MG TABLET PO SCH (20:37)
[2018-08-30] MEDS: *HR* Metformin 500 MG TABLET PO SCH ×2 (09:30→20:40)
--- NOTE | 2018-08-30 11:20 | Electrophysiology ProgressNote ---
Date of Encounter: 08/30/18 Time of Encounter: 11:15 Assessment and Plan (1) PAF (paroxysmal atrial fibrillation) Current Visit: Yes Status: Acute The assessment and plan as outlined above was discussed with the patient and/or family members who expressed understanding and agreement. All questions were answered. Pt called the office with c/o recurrent palpitations. Set up for direct admit for sotalol increase.Recent sotalol initiation with DCCV to NSR. Recurrent afib after three days. Sotalol increased from 80 mg BID to 120 mg BID. S/p 2 doses. Will need monitored for 5 doses. Baseline EKG showes atrial fibrillation, HR 100 bpm, QT/QTc 379/436, QRS 89 EKG 08/30/18, atrial fibrillation, HR 79, QT/QTc 414/449, QRS 80. He denies missed dose of xarelto in last 30 days. Continue metoprolol and sotalol 120 mg BID. Possible DCCV tomorrow if he doesn' t convert. (2) HTN (hypertension) Current Visit: Yes Status: Acute Noted to have elevated diastolic b/p. Increase lisinopril back to 40 mg daily. Qualifiers: Hypertension type: essential hypertension Qualified Code(s): I10 - Essential (primary) hypertension Code(s): I10 - Essential (primary) hypertension SNOMED Code(s): 31275480 Discussion w patient/family: The assessment and plan as outlined above was discussed with the patient and/or family members who expressed understanding and agreement. All questions were answered. Thank you for involving us in the care of your patient. Please call with any questions. Subjective Principal diagnosis: Chest pain Interval history: Mr. Royal is ambulating in his room. No complaints. States that he feels better. Objective Vital Signs, Last 4 Hours Temp Pulse Resp BP Pulse Ox 08/30/18 11:04 97.8 F 54 16 122/74 94 General: Conversant, No Apparent Distress HEENT: Atraumatic, Normocephaly, Mucus Membranes Moist Neck: No JVD, Normal carotid pulses Cardiac: Other (Irregular) Lungs: Normal Breath Sounds, No Wheeze, Rales, Rhonchi Neuro: Alert and responsive, No focal deficits noted Abdomen: Soft, Non-Tender Skin: No rashes noted on visualized skin Musculoskeletal: No Chest Wall Tenderness Extremities: No Clubbing, No Cyanosis, No Edema, Normal Pulses Results 08/29/18 15:39 Lab Results 08/29/18 15:39 Sodium 140 Potassium 4.1 Chloride 109 H Carbon Dioxide 25 BUN 16 Creatinine 1.10 Glucose 117 H Calcium 9.5 - EKG Interpretation EKG results cardiology: personally reviewed - VTE Reasons for not Prescribing Prophylaxis: Not indicated-Anticoagulated or INR therapeutic Consult Discharge Plan - Plan Referrals: Trenton Schneider MD [Primary Care Provider] -
--- NOTE | 2018-08-30 14:35 | Electrocardiograph Report ---
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
--- NOTE | 2018-08-30 14:59 | Electrocardiograph Report ---
[address] [address] Test Date: 2018-08-30 Pat Name: Mike Royal Department: 111 Room: 2NE19 Gender: M Corporate Counsel: : 1945 Requested By: Mike Figueroa Order Number: [id number] Reading MD: Eriberto Carrington Measurements Intervals [place] Rate: 79 P: [place]: 0 QRS: -24 QRSD: 80 T: -16 QT: 414 QTc: 449 Interpretive Statements ATRIAL FIBRILLATION BORDERLINE LEFT AXIS DEVIATION NONSPECIFIC T-WAVE ABNORMALITY Electronically Signed On 08-30-2018 14:57:55 EDT by Eriberto Carrington
[2018-08-30] MEDS: Multivit/Ca/Min/Fe/FA 1 TAB TABLET PO SCH ×2 (17:39→17:40)
[2018-08-30] MEDS: Aspirin Enteric Coated 81 MG Tablet PO SCH (17:39)
[2018-08-30] MEDS: Loratadine 10 MG TABLET PO SCH (17:41)
[2018-08-30] MEDS: Cholecalciferol (D-3) 1,000 UNIT TABLET PO SCH (17:41)
[2018-08-30] MEDS: *HR* Rivaroxaban 10 MG TABLET PO SCH (17:42)
[2018-08-30] MEDS: Lisinopril 20 MG TABLET PO SCH (17:42)
[2018-08-30] MEDS: Fluticasone Propionate Nasal 50 MCG/SPRAY BOTTLE NS SCH (17:43)
[2018-08-30] MEDS: (Omega-3/Dha/Epa/Fish Oil [Fish Oil 1,000 Mg Softgel] PO SCH (17:44)
[2018-08-31] MEDS: *HR* Metformin 500 MG TABLET PO SCH ×2 (09:35→09:41)
--- NOTE | 2018-08-31 09:59 | Cardiology Progress Note ---
Date of Encounter: 08/31/18 Time of Encounter: 09:57 Assessment and Plan (1) PAF (paroxysmal atrial fibrillation) Current Visit: Yes Status: Acute The assessment and plan as outlined above was discussed with the patient and/or family members who expressed understanding and agreement. All questions were answered. Presented for direct admit for sotalol increase for recurrent afib. Recent sotalol initiation with DCCV to NSR. Recurrent afib after three days. Sotalol increased from 80 mg BID to 120 mg BID. S/p 3 doses. Will need monitored for 5 doses. Last night he converted to sinus bradycardia with HR 40-50's. Avg HR 53 bpm. States HR often in 50's when he is sinus. Denies dizziness. C/o feeling "fuzzy. " Baseline EKG showed atrial fibrillation, HR 100 bpm, QT/QTc 379/436, QRS 89 EKG 08/30/18, atrial fibrillation, HR 79, QT/QTc 414/449, QRS 80. EKG 08/31/18, SB, HR 47, QT/QTc 519/483, QRS 101. EKG 08/31/18, SB, HR 47, QT QTc 504/467 ms., QRS [address] Mike Figueroa. We will d/ metoprolol and continue sotalol. Patient agrees with plan. He denies missed dose of xarelto in last 30 days. Continue sotalol 120 mg BID. Due to delay in dosing his 5th dose will be tonight at 0930 pm. He will stay until tomorrow for d/c to monitor for improvement in HR. (2) HTN (hypertension) Current Visit: Yes Status: Acute Noted to have elevated B/p. D/c metoprolol due to HR. WIll add HCTZ. Monitor kidney function with BMP in one week. Qualifiers: Hypertension type: essential hypertension Qualified Code(s): I10 - Essential (primary) hypertension Code(s): I10 - Essential (primary) hypertension SNOMED Code(s): 95247485 Discussion w patient/family: The assessment and plan as outlined above was discussed with the patient and/or family members who expressed understanding and agreement. All questions were answered. Thank you for involving us in the care of your patient. Please call with any questions. Subjective Principal diagnosis: Chest pain Interval history: Mr. Royal is ambulating in his room. says he feels a little "fuzzy." No chest pain or dizziness. Metoprolol held due to low HR. He states HR runs low when he is in NSR. Objective Vital Signs, Last 4 Hours Temp Pulse Resp BP Pulse Ox 08/31/18 07:38 98 F 49 16 146/75 97 General: Conversant, No Apparent Distress HEENT: Atraumatic, Normocephaly, Mucus Membranes Moist Neck: No JVD, Normal carotid pulses Cardiac: Reg Rate and Rhythm, Normal S1 and S2, No Murmur, Other (sinus bradycardia) Lungs: Normal Breath Sounds, No Wheeze, Rales, Rhonchi Neuro: Alert and responsive, No focal deficits noted Abdomen: Soft, Non-Tender Skin: No rashes noted on visualized skin Musculoskeletal: No Chest Wall Tenderness Extremities: No Clubbing, No Cyanosis, No Edema, Normal Pulses Results 08/29/18 15:39 - Imaging and Cardiology Echo: report reviewed - EKG Interpretation EKG results cardiology: personally reviewed - VTE Reasons for not Prescribing Prophylaxis: Not indicated-Anticoagulated or INR therapeutic Consult Discharge Plan - Plan Referrals: Trenton Schneider MD [Primary Care Provider] -
[2018-08-31] MEDS: hydroCHLOROthiazide 25 MG TABLET PO SCH (14:18)
[2018-08-31] MEDS: Loratadine 10 MG TABLET PO SCH (18:36)
[2018-08-31] MEDS: *HR* Rivaroxaban 10 MG TABLET PO SCH (18:36)
[2018-08-31] MEDS: Aspirin Enteric Coated 81 MG Tablet PO SCH (18:36)
[2018-08-31] MEDS: Lisinopril 20 MG TABLET PO SCH (18:38)
[2018-08-31] MEDS: (Omega-3/Dha/Epa/Fish Oil [Fish Oil 1,000 Mg Softgel] PO SCH (18:39)
[2018-08-31] MEDS: Cholecalciferol (D-3) 1,000 UNIT TABLET PO SCH (18:39)
[2018-08-31] MEDS: Multivit/Ca/Min/Fe/FA 1 TAB TABLET PO SCH (18:40)
[2018-08-31] MEDS ORDERED: Acetaminophen 325 MG TABLET PO PRN (18:43)
[2018-08-31] MEDS: Fluticasone Propionate Nasal 50 MCG/SPRAY BOTTLE NS SCH (19:00)
[2018-08-31] MEDS ORDERED: amLODIPine 5 MG TABLET PO STA (21:19)
[2018-09-01] MEDS: *HR* Metformin 500 MG TABLET PO SCH (08:57)
[2018-09-01] MEDS: hydroCHLOROthiazide 25 MG TABLET PO SCH (08:57)
[2018-09-01 12:15] VITALS: BP 149/69
--- NOTE | 2018-09-01 13:10 | Discharge Summary ---
Orders not resulted at time of discharge: Pending orders 08/31/18 06:00 EKG [ECG 12 lead ECG] [ECG] AM 0600 08/31/18 08:30 EKG [ECG 12 lead ECG] [ECG] Routine 08/31/18 18:49 EKG [ECG 12 lead ECG] [ECG] Routine 09/01/18 06:00 EKG [ECG 12 lead ECG] [ECG] AM 0600 09/01/18 12:14 EKG [ECG 12 lead ECG] [ECG] Stat Date of Encounter: 09/01/18 Time of Encounter: 10:30 - Discharge Diagnosis (1) PAF (paroxysmal atrial fibrillation) Priority: Primary Status: Acute (2) HTN (hypertension) Priority: Secondary Status: Chronic Qualifiers: Hypertension type: essential hypertension Qualified Code(s): I10 - Essential (primary) hypertension - Hospital Course Hospital course: Mr. Royal is a 73 year old male who presented for sotalol titration due to recurrent PAF. During hospital stay sotalol was increased to 120 mg BID; QTc remained stable throughout hospitalization, QTc this AM was 451 ms. Lopressor discontinued d/t bradycardia (HR in the 40's). Of note, patient's heart rate typically runs low, 50's-60's when in NSR. Telemetry reviewed overnight, avg HR= 47 SB, no significant pause noted. When ambulating, HR mid 50's. He denies dizziness, pre-syncope, or any new fatigue. I did review all information and patient data with both Dr. Soto and Dr. Figueroa prior to discharge who agree patient can be safely discharged today. Anticipate HR to improve as lopressor washes out (Last dose 08/30). Patient was instructed to hold dose of sotalol with HR less than 40. He was instructed to call the office if this occurs. Recommend ED evaluation with pre- sycope or syncopal symptoms. HCTZ was started for elevated BP, he was given orders to obtain BMP/Mg in 7-10 days. All questions and concerns were addressed prior to discharge. He will follow-up with Dr. Figueroa as scheduled on 09/19. - Time Spent with Patient Total time spent providing and/or coordinating discharge services: 1 hour Greater than 30 minutes - Discharge Medications Prescriptions: hydroCHLOROthiazide [Hydrochlorothiazide] 12.5 mg PO DAILY #30 tablet Home Medications: Aspirin Enteric Coated [Aspirin EC] 81 mg PO QPM 08/13/18 [History] Calcium Carb, Citrate/Vit D3 [Calcium + D3 ER Tablet] 1 tab PO QPM 08/13/18 [ History] Cetirizine HCl [All Day Allergy] 10 mg PO QPM 08/13/18 [History] Fluticasone Propionate Nasal [Flonase] 1 spr NS QPM 08/13/18 [History] Lisinopril [Zestril] 40 mg PO QPM 08/13/18 [History] Multivitamin [One Daily Essential] 1 tab PO QPM 08/13/18 [History] [place]-3/Dha/Epa/Fish Oil [Fish Oil 1,000 mg Softgel] 1 cap PO QPM 08/13/18 [ History] Omeprazole [PriLOSEC] 20 mg PO QPM 08/13/18 [History] Rivaroxaban [Xarelto] 20 mg PO QPM 08/13/18 [History] Tamsulosin HCl [Flomax] 0.4 mg PO QPM 08/13/18 [History] Metformin HCl [Metformin HCl ER] 500 mg PO DAILY 08/29/18 [History] Sotalol [Betapace] 120 mg PO Q12H #0 tablet 09/01/18 [Rx] hydroCHLOROthiazide [Hydrochlorothiazide] 12.5 mg PO DAILY #30 tablet 09/01/18 [ Rx] Allergies/Adverse Reactions: 3 Allergy/AdvReac Type Severity Reaction Status Date / Time lovastatin AdvReac Hives Verified 08/13/18 13:14 Date of admission: 08/29/18 15:15 Primary care physician: Trenton Schneider MD Discharging clinician: Rima Mccoy Anticipated date of discharge: 09/01/18 Physical Examination Vital Signs, Last 4 Hours Temp Pulse Resp BP Pulse Ox 09/01/18 12:14 98.4 F 55 16 149/69 96 General: Conversant, No Apparent Distress HEENT: Atraumatic, Normocephaly, Mucus Membranes Moist Neck: No JVD, Normal carotid pulses Cardiac: Normal S1 and S2, No Murmur, Other (bradycardiac) Lungs: Normal Breath Sounds, No Wheeze, Rales, Rhonchi Neuro: Alert and responsive, No focal deficits noted Abdomen: Soft, Non-Tender Skin: No rashes noted on visualized skin Musculoskeletal: No Chest Wall Tenderness Extremities: No Clubbing, No Cyanosis, No Edema, Normal Pulses - Patient Status Disposition: Home, Self-Care Condition: Good Functional capacity at discharge: independent ambulation Overall status at discharge: patient is back to baseline - Discharge Instructions Follow Up With: Trenton Schneider MD [Primary Care Provider] - Mike Figueroa MD [Partnered Physician] - 09/19/18 10:15 am - Diet and Activity Activity: increase activity as tolerated, resume usual activities as tolerated Diet: advance to your usual diet - VTE Reasons for not Prescribing Prophylaxis: Not indicated-Anticoagulated or INR therapeutic
--- NOTE | 2018-09-03 16:09 | Electrocardiograph Report ---
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
--- NOTE | 2018-09-03 16:16 | Electrocardiograph Report ---
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
--- NOTE | 2018-09-03 16:56 | Electrocardiograph Report ---
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
--- NOTE | 2018-09-04 10:04 | Electrocardiograph Report ---
[place] [address] Test Date: 2018-09-01 Pat Name: Mike Royal Department: 111 Room: 2NE19 Gender: M Director Of Community Education: : 1945 Requested By: Clinton De La Cruz Order Number: [id number] Reading MD: Kin Tavarez Measurements Intervals [place] Rate: 43 P: 82 [place]: 154 QRS: 22 QRSD: 98 T: -36 QT: 507 QTc: 451 Interpretive Statements SINUS BRADYCARDIA NONSPECIFIC ST & T-WAVE ABNORMALITY Electronically Signed On 09-04-2018 10:02:26 EDT by Kin Tavarez
--- NOTE | 2018-09-04 10:53 | Electrocardiograph Report ---
[place] [address] Test Date: 2018-09-01 Pat Name: Mike Royal Department: 111 Room: 2NE19 Gender: M Caddie: [facility] : 1945 Requested By: Rima Mccoy Order Number: [id number] Reading MD: Kin Tavarez Measurements Intervals [place] Rate: 47 P: 74 [place]: 164 QRS: -14 QRSD: 83 T: -26 QT: 461 QTc: 423 Interpretive Statements Sinus bradycardia Inferior T-wave changes, consider ischemia Electronically Signed On 09-04-2018 10:51:46 EDT by Kin Tavarez
== END 2018-09-01 14:15 | disposition home or self-care (01) | DRG 310 ==
LOC: 2NENU 15:15
PROVIDERS: ADMIT Internal Medicine Clinical Cardiac Electrophysiology; ATTEND Internal Medicine Clinical Cardiac Electrophysiology